=== PATIENT | female | born 1965 | race African-American/Black ===

== ENCOUNTER → 2016-05-02 | Outpatient (CLI) | payer OTHER ==
[~2016-05-02] MED LIST: ADVA500A INH; IPRA0.02 INH; LEVA3NEB7 NEB; LEVA500T PO; MULT-65 PO; NORV10TA PO; OMEGCAP2 PO; PRED5TAB PO; XOPEAER4 INH
[2016-05-02 08:32] LABS: HEMATOCRIT 39.5 % (35.0-46.0); MEAN CORPUSCULAR HEMOGLOBIN 31.6 PG (27.0-34.0); MEAN CORPUSCULAR HGB CONC 33.9 % (32.0-36.0); PLATELET COUNT 314 TH/MM3 (150-450); RED BLOOD COUNT 4.25 MIL/MM3 (4.00-5.30); RED CELL DISTRIBUTION WIDTH 12.7 % (11.6-17.2); REVIEW FLAG FINAL; WHITE BLOOD COUNT 7.1 TH/MM3 (4.0-11.0)
[2016-05-02 08:55] LABS: ANION GAP 9 MEQ/L (5-15); AST (GOT) 16 U/L (15-37); BLOOD UREA NITROGEN 16 MG/DL (7-18); CHLORIDE 104 MEQ/L (98-107); GLOMERULAR FILTRATION RATE 76 ML/MIN (>89); GLUCOSE,FASTING 235 MG/DL (74-99); POTASSIUM 3.4 MEQ/L (3.5-5.1); SODIUM (NA) 137 MEQ/L (136-145)
[2016-05-02 09:06] LABS: ALKALINE PHOSPHATASE 89 U/L (45-117); ALT (GPT) 27 U/L (10-53); HDL CHOLESTEROL 47.7 MG/DL (40.0-60.0); LDL CHOLESTEROL 175 MG/DL (0-99); TOTAL BILIRUBIN ADULT 0.8 MG/DL (0.2-1.0)
[2016-05-02 16:08] LABS: HEMOGLOBIN A1a 1.1 %; HEMOGLOBIN A1b 2.7 %; HEMOGLOBIN Ao 77.4 %; HEMOGLOBIN LA1C 2.7 %; HEMOGLOBIN P3 4.7 %
== END ==
LOC: CLAB 07:59
PROVIDERS: ATTEND Family Medicine
DX: E78.5 Hyperlipidemia, unspecified (principal); E11.65 Type 2 diabetes mellitus with hyperglycemia; I10 Essential (primary) hypertension
CPT/HCPCS: 36415; 80053; 80061; 83036; 84443; 85027

== ENCOUNTER → 2016-10-02 | Outpatient (CLI) | payer OTHER ==
[2016-10-02 08:48] LABS: ANION GAP 9 MEQ/L (5-15); BICARBONATE 24.2 MEQ/L (21.0-32.0); BLOOD UREA NITROGEN 14 MG/DL (7-18); CHLORIDE 106 MEQ/L (98-107); GLOMERULAR FILTRATION RATE 68 ML/MIN (>89); GLUCOSE,FASTING 145 MG/DL (74-99); POTASSIUM 3.9 MEQ/L (3.5-5.1); SODIUM (NA) 139 MEQ/L (136-145)
[2016-10-02 08:50] LABS: ALT (GPT) 35 U/L (10-53); AST (GOT) 39 U/L (15-37)
[2016-10-02 08:53] LABS: ALKALINE PHOSPHATASE 84 U/L (45-117); HDL CHOLESTEROL 47.4 MG/DL (40.0-60.0); LDL CHOLESTEROL 111 MG/DL (0-99); TOTAL BILIRUBIN ADULT 0.9 MG/DL (0.2-1.0)
[2016-10-02 09:06] LABS: HEMATOCRIT 39.7 % (35.0-46.0); MEAN CELL VOLUME 93.4 FL (80.0-100.0); MEAN CORPUSCULAR HEMOGLOBIN 30.4 PG (27.0-34.0); MEAN CORPUSCULAR HGB CONC 32.5 % (32.0-36.0); PLATELET COUNT 363 TH/MM3 (150-450); RED BLOOD COUNT 4.25 MIL/MM3 (4.00-5.30); REVIEW FLAG FINAL; WHITE BLOOD COUNT 5.9 TH/MM3 (4.0-11.0)
[2016-10-02 16:47] LABS: HEMOGLOBIN A1b 1.4 %; HEMOGLOBIN LA1C 2.1 %; HEMOGLOBIN P3 3.4 %
== END ==
LOC: CLAB 07:58
PROVIDERS: ATTEND Family Medicine
DX: I10 Essential (primary) hypertension (principal); J45.20 Mild intermittent asthma, uncomplicated; E78.5 Hyperlipidemia, unspecified; E11.65 Type 2 diabetes mellitus with hyperglycemia
CPT/HCPCS: 36415; 80053; 80061; 83036; 85027

== ENCOUNTER → 2017-03-12 | Outpatient (CLI) | payer OTHER ==
[2017-03-12 08:40] LABS: HEMATOCRIT 38.7 % (35.0-46.0); MEAN CELL VOLUME 95.1 FL (80.0-100.0); MEAN CORPUSCULAR HGB CONC 33.6 % (32.0-36.0); MEAN PLATELET VOLUME 7.9 FL (7.0-11.0); PLATELET COUNT 404 TH/MM3 (150-450); RED BLOOD COUNT 4.07 MIL/MM3 (4.00-5.30); RED CELL DISTRIBUTION WIDTH 12.9 % (11.6-17.2); WHITE BLOOD COUNT 6.4 TH/MM3 (4.0-11.0)
[2017-03-12 09:16] LABS: CHOLESTEROL 205 MG/DL (120-200)
[2017-03-12 09:22] LABS: ALBUMIN 3.7 GM/DL (3.4-5.0); ALT (GPT) 33 U/L (10-53); AST (GOT) 29 U/L (15-37); BICARBONATE 28.6 MEQ/L (21.0-32.0); BLOOD UREA NITROGEN 20 MG/DL (7-18); CALCIUM 8.8 MG/DL (8.5-10.1); CHLORIDE 103 MEQ/L (98-107); CREATININE 1.08 MG/DL (0.50-1.00); GLOMERULAR FILTRATION RATE 64 ML/MIN (>89); GLUCOSE,FASTING 138 MG/DL (74-99); SODIUM (NA) 137 MEQ/L (136-145)
[2017-03-12 09:27] LABS: ALKALINE PHOSPHATASE 87 U/L (45-117); CHOLESTEROL/ HDL RATIO 4.27 RATIO; LDL CHOLESTEROL 123 MG/DL (0-99); TOTAL BILIRUBIN ADULT 1.1 MG/DL (0.2-1.0); TOTAL PROTEIN 7.5 GM/DL (6.4-8.2); TRIGLYCERIDES 172 MG/DL (42-150)
== END ==
LOC: CLAB 08:17
PROVIDERS: ATTEND Family Medicine
DX: J45.20 Mild intermittent asthma, uncomplicated (principal); E78.5 Hyperlipidemia, unspecified; I10 Essential (primary) hypertension; E11.65 Type 2 diabetes mellitus with hyperglycemia
CPT/HCPCS: 36415; 80053; 80061; 84443; 85027

== ENCOUNTER 2017-05-09 13:27 | Inpatient (IN) | payer OTHER ==
[~2017-05-09] VITALS: Ht 157.5 cm; Wt 61.0 kg
[2017-05-09] VITALS (15 sets, daily range): BP systolic 98–137; BP diastolic 67–87; PULSE 104–160; RESP 18–28; TEMP 98.7–99; O2SAT 89–100
--- NOTE | 2017-05-09 13:31 | PD ---
HPI Chief Complaint: Shortness of breath Time Seen by Provider: 13:30 Travel History International Travel<30 days: No Contact w/Intl Traveler<30days: No Traveled to known affect area: No History of Present Illness HPI This 51-year-old female is complaining of shortness of breath. She is transported from Dr. Mendosa's office. She has a history of asthma. She has been on prednisone for the past week. She has been coughing and short of breath. She went to Dr. Mendosa's office today. She has been given Solu- Medrol and was given a nebulizer treatment with Atrovent. They would not give albuterol because she was tachycardic. She has not been transported. She has had tachycardia associated with her asthma attacks in the past. She has no history of heart disease. She does not have a history of SVT or atrial fibrillation that she is aware of [facility] Past Medical History Arthritis: No Asthma: Yes Autoimmune Disease: No Blood Disorders: No Anxiety: No Depression: No Heart Rhythm Problems: Yes ("tachycardia" 2006) Cancer: No Cardiovascular Problems: Yes High Cholesterol: No Chemotherapy: No Chest Pain: No Congestive Heart Failure: No COPD: No Cerebrovascular Accident: No Diabetes: No Diminished Hearing: No Endocrine: No GERD: Yes (LAST FEW MONTHS) Glaucoma: No Genitourinary: No Headaches: No Hepatitis: No Hiatal Hernia: No Hypertension: Yes Immune Disorder: No Kidney Stones: No Musculoskeletal: No Neurologic: No Psychiatric: No Reproductive: No Respiratory: Yes (2000 intubated for two days after acute asthma attack) Immunizations Current: Yes Migraines: No Myocardial Infarction: No Radiation Therapy: No Renal Failure: No Seizures: No Sickle Cell Disease: No Sleep Apnea: No Thyroid Disease: No Ulcer: No : 2 Para: 1 Miscarriage: 1 Past Surgical History Abdominal Surgery: Yes AICD: No Appendectomy: No Arteriovenous Shunt: No Cardiac Surgery: No Section: Yes (2000) Cholecystectomy: No Ear Surgery: No Endocrine Surgery: No Eye Surgery: No Genitourinary Surgery: No Gynecologic Surgery: Yes Insulin Pump: No Joint Replacement: No Oral Surgery: No Pacemaker: No Thoracic Surgery: No Other Surgery: Yes (c section 2000) Social History Alcohol Use: No Tobacco Use: No Substance Use: No Allergies-Medications (Allergen,Severity, Reaction): Coded Allergies: penicillin G (Unverified Allergy, Severe, SOB, 05/09/17) strawberry (Unverified Allergy, Severe, RASH, 05/09/17) albuterol (Unverified Adverse Reaction, Severe, TACHYCARDIA, 05/09/17) Reported Meds & Prescriptions Reported Meds & Active Scripts Active Reported Medrol Dosepak (Methylprednisolone) Unknown Strength Dspk 20 Mg PO DIRECTED Per Pharmacist direction Xopenex Hfa 15 GM Inh (Levalbuterol 15 GM Inh) Unknown Strength Aer Unknown Dose INH DIRECTED PRN Shake well before using. (1 puff = 45 mcg) Xopenex Neb (Levalbuterol HCl) Unknown Strength Neb Unknown Dose NEB Q4HR PRN Breo Ellipta Inh (Fluticasone/Vilanterol) 200-25 Mcg/Act Inh 1 Puff INH DAILY Use daily at the same time. Metformin (Metformin HCl) 500 Mg Tab 500 Mg PO BIDPC Norvasc (Amlodipine Besylate) 5 Mg Tab 5 Mg PO DAILY Review of Systems General / Constitutional: No: Fever, Chills Eyes: No: Diploplia, Blurred Vision HENT: No: Headaches Cardiovascular: Positive: Palpitations, Tachycardia, No: Chest Pain or Discomfort Respiratory: Positive: Cough, Shortness of Breath Gastrointestinal: No: Nausea, Vomiting Physical Exam Narrative GENERAL: Well-developed female. On arrival her heart rate is 160 SKIN: Focused skin assessment warm/dry. HEAD: Atraumatic. Normocephalic. EYES: Pupils equal and round. No scleral icterus. No injection or drainage. ENT: No nasal bleeding or discharge. Mucous membranes pink and moist. NECK: Trachea midline. No JVD. CARDIOVASCULAR: Rapid regular rate and rhythm. No murmur appreciated. RESPIRATORY: There is accessory muscle use. There is bilateral expiratory wheezing GASTROINTESTINAL: Abdomen soft, non-tender, nondistended. Hepatic and splenic margins not palpable. MUSCULOSKELETAL: No obvious deformities. No clubbing. No cyanosis. No edema. NEUROLOGICAL: Awake and alert. No obvious cranial nerve deficits. Motor grossly within normal limits. Normal speech. PSYCHIATRIC: Appropriate mood and affect; insight and judgment normal. Data Data Last Documented VS Vital Signs Date Time Temp Pulse Resp B/P (MAP) Pulse Ox O2 Delivery O2 Flow Rate FiO2 05/09/17 15:30 161 24 99 Venturi Mask 50 05/09/17 15:03 137/87 (104) 05/09/17 13:45 98.9 Orders Orders Electrocardiogram (05/09/17 13:35) Complete Blood Count With Diff (05/09/17 13:35) Comprehensive Metabolic Panel (05/09/17 13:35) Troponin I (05/09/17 13:35) B-Type Natriuretic Peptide (05/09/17 13:35) Prothrombin Time / Inr (Pt) (05/09/17 13:35) Act Partial Throm Time (Ptt) (05/09/17 13:35) Urinalysis - C+S If Indicated (05/09/17 13:35) Magnesium (Mg) (05/09/17 13:35) Thyroid Stimulating Hormone (05/09/17 13:35) Chest, Single Ap (05/09/17 13:35) Sodium Chlorid 0.9% 500 Ml Inj (Ns 500 M (05/09/17 13:45) Arterial Blood Gas (Abg) (05/09/17 14:26) Furosemide Inj (Lasix Inj) (05/09/17 15:00) Levalbuterol Neb (Xopenex Neb) (05/09/17 15:15) Insulin Human Regular Inj (Novolin R Inj (05/09/17 15:15) Adenosine Inj (Adenocard Inj) (05/09/17 15:30) Admit Order (Ed Use Only) (05/09/17 15:36) Labs Laboratory Tests Test 05/09/17 13:50 05/09/17 14:15 05/09/17 14:53 Prothrombin Time 10.5 SEC Prothromb Time International Ratio 1.0 RATIO Activated Partial Thromboplast Time 18.4 SEC Blood Urea Nitrogen 23 MG/DL Creatinine 1.40 MG/DL Random Glucose 409 MG/DL Total Protein 8.1 GM/DL Albumin 3.6 GM/DL Calcium Level 8.5 MG/DL Magnesium Level 2.4 MG/DL Alkaline Phosphatase 96 U/L Aspartate Amino Transf (AST/SGOT) 13 U/L Alanine Aminotransferase (ALT/SGPT) 31 U/L Total Bilirubin 0.6 MG/DL Sodium Level 135 MEQ/L Potassium Level 4.1 MEQ/L Chloride Level 102 MEQ/L Carbon Dioxide Level 22.1 MEQ/L Anion Gap 11 MEQ/L Estimat Glomerular Filtration Rate 48 ML/MIN Troponin I 0.28 NG/ML B-Type Natriuretic Peptide 1218 PG/ML Thyroid Stimulating Hormone 3rd Gen 1.510 uIU/ML White Blood Count 11.4 TH/MM3 Red Blood Count 4.64 MIL/MM3 Hemoglobin 14.5 GM/DL Hematocrit 43.7 % Mean Corpuscular Volume 94.2 FL Mean Corpuscular Hemoglobin 31.2 PG Mean Corpuscular Hemoglobin Concent 33.1 % Red Cell Distribution Width 12.5 % Platelet Count 422 TH/MM3 Mean Platelet Volume 8.6 FL Neutrophils (%) (Auto) 89.6 % Lymphocytes (%) (Auto) 3.9 % Monocytes (%) (Auto) 2.8 % Eosinophils (%) (Auto) 0.1 % Basophils (%) (Auto) 3.6 % Neutrophils # (Auto) 10.3 TH/MM3 Lymphocytes # (Auto) 0.4 TH/MM3 Monocytes # (Auto) 0.3 TH/MM3 Eosinophils # (Auto) 0.0 TH/MM3 Basophils # (Auto) 0.4 TH/MM3 CBC Comment DIFF FINAL Differential Comment Blood Gas Puncture Site LT RADIAL Blood Gas Patient Temperature 98.6 Blood Gas HCO3 21 mmol/L Blood Gas Base Excess -3.6 mmol/L Blood Gas Oxygen Saturation 95 % Arterial Blood pH 7.39 Arterial Blood Partial Pressure CO2 35 mmHG Arterial Blood Partial Pressure O2 86 mmHG Arterial Blood Oxygen Content 18.4 Vol % Arterial Blood Carboxyhemoglobin 1.2 % Arterial Blood Methemoglobin 1.1 % Blood Gas Hemoglobin 13.8 G/DL Oxygen Delivery Device Venti Mask Blood Gas Inspired Oxygen 50 % [facility] Medical Decision Making Medical Screen Exam Complete: Yes Emergency Medical Condition: Yes Medical Record Reviewed: Yes Differential Diagnosis Differential includes asthma exacerbation, cardiac dysrhythmia Narrative Course Patient does not use albuterol listed as an allergy because it causes tachycardia. She says she has had trouble with tachycardia in the past associated with her exacerbations. She was given Solu-Medrol prior to arrival. We have given Xopenex 3. Repeat exam shows some improvement in her wheezing. She has persistent heart rate of 160. With the Valsalva maneuver this came down gradually to 147 and then went back up. EKG shows a's tachycardia narrow complex there appear to be peaked P waves. Her BNP has come back elevated at 1218 and her troponin is 0.28. EKG shows a narrow complex tachycardia. She was given adenosine which caused him temporarily swelling and has subsequently been given Cardizem. She will be admitted to the intensive care unit Diagnosis Primary Impression: Asthma exacerbation Additional Impression: CHF (congestive heart failure) Derek Hickey MD May 09, 2017 13:31
[2017-05-09] MEDS ORDERED: SODIUM CHLORID 0.9% 500 ML INJ 500 ML IV ONE (13:45)
[2017-05-09] MEDS: RESP: LEVALBUTEROL HYDROCHLORIDE 1.25 MG/3 ML NEB (SCH) NEB ×3 (14:05→14:30)
[2017-05-09 14:12] LABS: CHLORIDE 102 MEQ/L (98-107); SODIUM (NA) 135 MEQ/L (136-145)
[2017-05-09 14:16] LABS: ALBUMIN 3.6 GM/DL (3.4-5.0); BICARBONATE 22.1 MEQ/L (21.0-32.0); CALCIUM 8.5 MG/DL (8.5-10.1)
[2017-05-09 14:17] LABS: PROTHROMBIN TIME - PATIENT 10.5 SEC (9.8-11.6)
--- NOTE | 2017-05-09 14:24 | RADRPT ---
EXAM DATE/TIME: 05/09/2017 13:59 [facility] COMPARISON: CHEST SINGLE AP, July 22, 2012, 9:52. INDICATIONS : Short of breath MEDICAL HISTORY : Asthma SURGICAL HISTORY : None. ENCOUNTER: Initial ACUITY: 2 days PAIN SCORE: 0/10 LOCATION: Bilateral chest FINDINGS: A single view of the chest demonstrates the lungs to be symmetrically aerated without evidence of mas s, infiltrate or effusion. Mild cardiomegaly without pulmonary vascular engorgement. Osseous structu res are intact. CONCLUSION: Cardiomegaly without pulmonary vascular engorgement. Bright Welch Jr., MD on May 09, 2017 at 14:22 Board Certified Radiologist. This report was verified electronically.
[2017-05-09 14:29] LABS: AUTOMATED NEUTROPHIL # 10.3 TH/MM3 (1.8-7.7); BASOPHIL # 0.4 TH/MM3 (0-0.2); BASOPHIL % 3.6 % (0.0-2.0); EOSINOPHIL % 0.1 % (0.0-4.0); HEMATOCRIT 43.7 % (35.0-46.0); HEMOGLOBIN 14.5 GM/DL (11.6-15.3); LYMPH % 3.9 % (9.0-44.0); LYMPHOCYTE # 0.4 TH/MM3 (1.0-4.8); MEAN CELL VOLUME 94.2 FL (80.0-100.0); MEAN CORPUSCULAR HEMOGLOBIN 31.2 PG (27.0-34.0); MEAN CORPUSCULAR HGB CONC 33.1 % (32.0-36.0); MEAN PLATELET VOLUME 8.6 FL (7.0-11.0); MONO % 2.8 % (0.0-8.0); MONOCYTE # 0.3 TH/MM3 (0-0.9); NEUT % 89.6 % (16.0-70.0); PLATELET COUNT 422 TH/MM3 (150-450); RED BLOOD COUNT 4.64 MIL/MM3 (4.00-5.30); RED CELL DISTRIBUTION WIDTH 12.5 % (11.6-17.2); WHITE BLOOD COUNT 11.4 TH/MM3 (4.0-11.0)
[2017-05-09] MEDS: ADENOSINE IV SOLN 3 MG/ML 2 ML VIAL IV PUSH ONE ×2 (14:40→16:40)
[2017-05-09] MEDS ORDERED: FUROSEMIDE 20 MG/2 ML VIAL IV PUSH ONE (15:00)
[2017-05-09 15:03] LABS: ALKALINE PHOSPHATASE 96 U/L (45-117); ALT (GPT) 31 U/L (10-53); AST (GOT) 13 U/L (15-37); BLOOD UREA NITROGEN 23 MG/DL (7-18); GLOMERULAR FILTRATION RATE 48 ML/MIN (>89); GLUCOSE,RANDOM 409 MG/DL (74-106); MAGNESIUM 2.4 MG/DL (1.5-2.5); TOTAL BILIRUBIN ADULT 0.6 MG/DL (0.2-1.0); TOTAL PROTEIN 8.1 GM/DL (6.4-8.2); TROPONIN I 0.28 NG/ML (0.02-0.05)
[2017-05-09] MEDS ORDERED: INSULIN HUMAN REGULAR 1,000 UNITS/10 ML VIAL SQ ONE (15:15)
[2017-05-09] MEDS ORDERED: METF500T PO (15:18)
[2017-05-09] MEDS ORDERED: LEVA0.3110 NEB (15:18)
[2017-05-09] MEDS ORDERED: AMLO5 PO (15:18)
[2017-05-09] MEDS ORDERED: FLUT1INH7 INH (15:18)
[2017-05-09] MEDS ORDERED: XOPEAER4 INH (15:18)
[2017-05-09] MEDS ORDERED: MEDR4PAK PO (15:18)
[2017-05-09] MEDS ORDERED: ADENOSINE IV SOLN 3 MG/ML 2 ML VIAL IV PUSH ONE (15:30)
[2017-05-09 16:00] LABS: BILIRUBIN, URINE NEG (NEG); BLOOD, URINE TRACE (NEG); GLUCOSE,URINE 1000 OR GREATER mg/dL (NEG); KETONE, URINE NEG (NEG); NITRITE,URINE NEG (NEG); PH, URINE 5.5 (5.0-8.5); URINE COLOR YELLOW (YELLW/STRAW); URINE LEUKOCYTE ESTERASE NEG (NEG)
[2017-05-09 16:12] LABS: MUCUS URINE MANY /lpf (OCC)
[2017-05-09 16:13] LABS: HYALINE CAST, URINE 15-19 /lpf (RARE); RBC, URINE 0-3 /hpf (0-3); SQUAMOUS EPITHELIAL CELL URINE 0-5 /hpf (0-5); WBC, URINE 0-2 /hpf (0-5)
[2017-05-09] MEDS ORDERED: DILTIAZEM HCL 25 MG/5 ML VIAL IV ONE (16:15)
[2017-05-09] MEDS ORDERED: METOPROLOL TARTRATE 5 MG/5 ML VIAL IV PUSH ONE (17:00)
[2017-05-09] MEDS ORDERED: CHLORHEXIDINE GLUCONATE 2 % 1 PACK (2 CLOTHS) TOP PRN (17:15)
[2017-05-09] MEDS ORDERED: MAGNESIUM SULFATE INJ 2 GM in SODIUM CHLORIDE 0.9% INJ 96 ML IV PRN (17:15)
[2017-05-09] MEDS ORDERED: RESP: ALBUTEROL 2.5 MG/IPRATROPIUM 0.5 MG NEB (PRN) INH ×2 (17:15)
[2017-05-09] MEDS ORDERED: POTASSIUM PHOSPHATE MONOBASIC 500 MG TAB PO/TUBE PRN (17:15)
[2017-05-09] MEDS ORDERED: ONDANSETRON HCL 4 MG/2 ML VIAL IV PUSH PRN (17:15)
[2017-05-09] MEDS ORDERED: MAGNESIUM SULFATE INJ 4 GM in SODIUM CHLORIDE 0.9% INJ 92 ML IV PRN (17:15)
[2017-05-09] MEDS ORDERED: POTASSIUM CHLOR 20 MEQ PREMIX 100 ML IV PRN ×2 (17:15)
[2017-05-09] MEDS ORDERED: DEXTROSE 50% IN WATER 50 ML VIAL(D50) IV PUSH PRN (17:15)
[2017-05-09] MEDS ORDERED: FUROSEMIDE 40 MG/4 ML VIAL IV PUSH ONE (17:15)
[2017-05-09] MEDS ORDERED: POTASSIUM CHLORIDE 25 MEQ EFFERVESCENT TAB PO PRN (17:15)
[2017-05-09] MEDS ORDERED: POTASSIUM PHOSPHATE INJ 30 MMOL in SODIUM CHLOR 0.9% 250 ML INJ 250 ML IV PRN (17:15)
[2017-05-09] MEDS ORDERED: SODIUM PHOSPHATE INJ 30 MMOL in SODIUM CHLOR 0.9% 250 ML INJ 240 ML IV PRN (17:15)
[2017-05-09] MEDS ORDERED: MAGNESIUM OXIDE 400 MG TAB PO PRN (17:15)
[2017-05-09] MEDS ORDERED: POTASSIUM PHOSPHATE MONOBASIC 500 MG TAB PO PRN (17:15)
[2017-05-09] MEDS ORDERED: MISCELLANEOUS NURSING INFORMATION XX SCH (17:15)
[2017-05-09] MEDS ORDERED: POTASSIUM CHLOR 40 MEQ PREMIX 100 ML IV PRN ×2 (17:15)
--- NOTE | 2017-05-09 17:25 | HHI.HP ---
[facility] Service Critical Care Medicine Primary Care Physician Olga Reynolds MD Admission Diagnosis ASTHMA, TACHYCARDIA Diagnosis: Chief Complaint: shortness of breath Travel History International Travel<30 Days: No Contact w/Intl Traveler <30 Da: No Traveled to Known Affected Are: No History of Present Illness This 51-year-old female with a past medical history of poorly controlled asthma who presents with a few days of acute worsening shortness of breath. She states that approximately 2 weeks ago, she started noticing that it was more difficult to walk from the parking garage to her desk (approximately 300 yds). She also has noticed over the same time period that she needs additional pillows to sleep at night and is having worsening dyspnea. She has poorly controlled Asthma, and usually uses her Xopenex inhaler once or twice at night, and at least once during the daytime. She has been intubated for asthma in the past, approximately 17 years ago. She denies any chest pain. She is a nonsmoker and has no family history of coronary artery disease. Her father did of CHF (unknown type) in his 70s. In the emergency department, she was hypoxic requiring a 50% ventimask. She has a Cr 1.3 (reportedly normal baseline), She has an elevated BNP at 1300 and a CXR with evidence of cardiomegaly. I performed bedside critical care ultrasonography which demonstrated a severely depressed LV systolic function globally, decompressed RV with preserved RV function, collapsable IVC, no pericardial effusion. ROS is positive for tachycardia (has had palpitations x 48h and every hospital admission in last 2 years has HR > 140). denies fever, chills or recent colds/ flulike symptoms in last 6 months. denies nausea, vomiting, diarrhea, constipation, abdominal pain. denies lower extremity swelling. denies fatigue. denies agitation, hot/cold intolerance. Remainder of ROS negative. Review of Systems Constitutional: DENIES: Diaphoretic episodes, Fatigue, Fever, Weight gain, Weight loss, Chills, Dizziness, Change in appetite, Night Sweats Endocrine: DENIES: Abnorml menstrual pattern, Heat/cold intolerance, Polydipsia , Polyuria, Polyphagia Eyes: DENIES: Blurred vision, Diplopia, Eye inflammation, Eye pain, Vision loss , Photosensitivity, Double Vision Ears, nose, mouth, throat: DENIES: Tinnitus, Hearing loss, Vertigo, Nasal discharge, Oral lesions, Throat pain, Hoarseness, Ear Pain, Running Nose, Epistaxis, Sinus Pain, Toothache, Odynophagia Respiratory: COMPLAINS OF: Wheezing, Shortness of breath, DENIES: Apneas, Cough , Snoring, Hemoptysis, Sputum production Cardiovascular: COMPLAINS OF: Palpitations, Dyspnea on Exertion, Orthopnea, DENIES: Chest pain, Syncope, PND, Lower Extremity Edema, Claudication Gastrointestinal: DENIES: Abdominal pain, Black stools, Bloody stools, Constipation, Diarrhea, Nausea, Vomiting, Difficulty Swallowing, Anorexia Genitourinary: DENIES: Abnormal vaginal bleeding, Dysmenorrhea, Dyspareunia, Sexual dysfunction, Urinary frequency, Urinary incontinence, Urgency, Hematuria , Dysuria, Nocturia, Vaginal discharge Musculoskeletal: DENIES: Joint pain, Muscle aches, Stiffness, Joint Swelling, Back pain, Neck pain Integumentary: DENIES: Abnormal pigmentation, Pruritus, Rash, Nail changes, Breast masses, Breast skin changes, Nipple discharge Hematologic/lymphatic: DENIES: Bruising, Lymphadenopathy Immunologic/allergic: DENIES: Eczema, Urticaria Neurologic: DENIES: Abnormal gait, Headache, Localized weakness, Paresthesias, Seizures, Speech Problems, Tremor, Poor Balance Psychiatric: DENIES: Anxiety, Confusion, Mood changes, Depression, Hallucinations, Agitation, Suicidal Ideation, Homicidal Ideation, Delusions Past Family Social History Allergies: Coded Allergies: penicillin G (Unverified Allergy, Severe, SOB, 05/09/17) strawberry (Unverified Allergy, Severe, RASH, 05/09/17) albuterol (Unverified Adverse Reaction, Severe, TACHYCARDIA, 05/09/17) Past Medical History Asthma Diabetes Hypertension Past Surgical History none Reported Medications Medrol Dosepak (Methylprednisolone) Unknown Strength Dspk 20 Mg PO DIRECTED Per Pharmacist direction Xopenex Hfa 15 GM Inh (Levalbuterol 15 GM Inh) Unknown Strength Aer Unknown Dose INH DIRECTED PRN Shake well before using. (1 puff = 45 mcg) Xopenex Neb (Levalbuterol HCl) Unknown Strength Neb Unknown Dose NEB Q4HR PRN Breo Ellipta Inh (Fluticasone/Vilanterol) 200-25 Mcg/Act Inh 1 Puff INH DAILY Use daily at the same time. Metformin (Metformin HCl) 500 Mg Tab 500 Mg PO BIDPC Norvasc (Amlodipine Besylate) 5 Mg Tab 5 Mg PO DAILY Active Ordered Medications See MAR Family History father of CHF in 70s. Social History never smoked. denies etoh denies any other drugs or over the counter supplementation. Physical Exam Vital Signs Vital Signs Date Time Temp Pulse Resp B/P (MAP) Pulse Ox O2 Delivery O2 Flow Rate FiO2 05/09/17 15:55 157 22 133/83 (100) 98 Venturi Mask 50 05/09/17 15:30 161 24 99 Venturi Mask 50 05/09/17 15:03 159 137/87 (104) 94 Venturi Mask 50 05/09/17 15:00 160 24 131/85 (100) 99 Venturi Mask 50 05/09/17 14:30 152 28 128/83 (98) 100 Venturi Mask 50 05/09/17 13:50 155 28 98 Venturi Mask 50 05/09/17 13:45 98.9 152 28 135/87 (103) 89 Physical Exam GENERAL: Middle-aged female, sitting up in bed, acute respiratory distress HEENT: Normocephalic. Atraumatic. Pupils equal, round, reactive, conjugate. Mucous membranes are moist NECK: Trachea is midline. Positive JVD up to the mid neck CHEST: Labored. Ventimask in place. Bilateral coarse rales which are greater in the bases. Scant wheezes CARDIOVASCULAR: Tachycardic rate in the 170s. Appears regular rhythm. EKG appears to be a narrow complex tachycardia with it appears to be P waves adjacent every QRS complex. While I was at bedside the patient was given 12 mg adenosine and the result was recorded on a 12-lead rhythm strip. To my read, the rhythm strip demonstrates a slowing of the heart rate to the 50s-60s, again there evidence of P waves adjacent QRS complexes and the complexes remain narrow. The rhythm returns to a tachycardia in the 140s. The remainder of the cardiac exam is unremarkable with the exception of the laterally displaced PMI ABDOMEN: Soft, nontender, nondistended. No guarding. MUSCULOSKELETAL: Pulses 2+. No peripheral edema. NEUROLOGICAL: RASS 0. GCS 15. Follows commands. Laboratory Laboratory Tests Test 05/09/17 13:50 05/09/17 14:15 05/09/17 14:53 05/09/17 15:40 Prothrombin Time 10.5 Prothromb Time International Ratio 1.0 Activated Partial Thromboplast Time 18.4 Blood Urea Nitrogen 23 Creatinine 1.40 Random Glucose 409 Total Protein 8.1 Albumin 3.6 Calcium Level 8.5 Magnesium Level 2.4 Alkaline Phosphatase 96 Aspartate Amino Transf (AST/SGOT) 13 Alanine Aminotransferase (ALT/SGPT) 31 Total Bilirubin 0.6 Sodium Level 135 Potassium Level 4.1 Chloride Level 102 Carbon Dioxide Level 22.1 Anion Gap 11 Estimat Glomerular Filtration Rate 48 Troponin I 0.28 B-Type Natriuretic Peptide 1218 Thyroid Stimulating Hormone 3rd Gen 1.510 White Blood Count 11.4 Red Blood Count 4.64 Hemoglobin 14.5 Hematocrit 43.7 Mean Corpuscular Volume 94.2 Mean Corpuscular Hemoglobin 31.2 Mean Corpuscular Hemoglobin Concent 33.1 Red Cell Distribution Width 12.5 Platelet Count 422 Mean Platelet Volume 8.6 Neutrophils (%) (Auto) 89.6 Lymphocytes (%) (Auto) 3.9 Monocytes (%) (Auto) 2.8 Eosinophils (%) (Auto) 0.1 Basophils (%) (Auto) 3.6 Neutrophils # (Auto) 10.3 Lymphocytes # (Auto) 0.4 Monocytes # (Auto) 0.3 Eosinophils # (Auto) 0.0 Basophils # (Auto) 0.4 CBC Comment DIFF FINAL Differential Comment Blood Gas Puncture Site LT RADIAL Blood Gas Patient Temperature 98.6 Blood Gas HCO3 21 Blood Gas Base Excess -3.6 Blood Gas Oxygen Saturation 95 Arterial Blood pH 7.39 Arterial Blood Partial Pressure CO2 35 Arterial Blood Partial Pressure O2 86 Arterial Blood Oxygen Content 18.4 Arterial Blood Carboxyhemoglobin 1.2 Arterial Blood Methemoglobin 1.1 Blood Gas Hemoglobin 13.8 Oxygen Delivery Device Venti Mask Blood Gas Inspired Oxygen 50 Urine Color YELLOW Urine Turbidity CLEAR Urine pH 5.5 Urine Specific [place] 1.020 Urine Protein TRACE Urine Glucose (UA) 1000 OR GREATER Urine Ketones NEG Urine Occult Blood TRACE Urine Nitrite NEG Urine Bilirubin NEG Urine Urobilinogen 0.2 Urine Leukocyte Esterase NEG Urine RBC 0-3 Urine WBC 0-2 Urine Squamous Epithelial Cells 0-5 Urine Hyaline Casts 15-19 Urine Mucus MANY Microscopic Urinalysis Comment CULT NOT INDICATED Result Diagram: 05/09/17 1415 05/09/17 1350 Imaging Last Impressions Chest X-Ray 05/09/17 1335 Signed Impressions: Service Date/Time: Tuesday, May 09, 2017 13:59 - CONCLUSION: Cardiomegaly without pulmonary vascular engorgement. MD Odell Belol Jr. VTE Risk Assessment Caprini VTE Risk Assessment: Mod/High Risk (score >= 2) Caprini Risk Assessment Model Point Value = 1 Point Value = 2 Point Value = 3 Point Value = 5 Age 41-60 Minor surgery BMI > 25 kg/m2 Swollen legs Varicose veins or History of unexplained or recurrent spontaneous Oral contraceptives or hormone replacement Sepsis (< 1 month) Serious lung disease, including pneumonia (< 1 month) Abnormal pulmonary function Acute myocardial infarction Congestive heart failure (< 1 month) History of inflammatory bowel disease Medical patient at bed rest Age 61-74 Arthroscopic surgery Major open surgery (> 45 min) Laparoscopic surgery (> 45 min) Malignancy Confined to bed (> 72 hours) Immobilizing plaster cast Central venous access Age >= 75 History of VTE Family history of VTE Factor V Leiden Prothrombin [id number] Lupus anticoagulant Anticardiolipin antibodies Elevated serum homocysteine Heparin-induced thrombocytopenia Other congenital or acquired thrombophilia Stroke (< 1 month) Elective arthroplasty Hip, pelvis, or leg fracture Acute spinal cord injury (< 1 month) Prophylaxis Regimen Total Risk Factor Score Risk Level Prophylaxis Regimen 0-1 Low Early ambulation 2 Moderate Order ONE of the following: *Sequential Compression Device (SCD) *Heparin 5000 units SQ BID 3-4 Higher Order ONE of the following medications: *Heparin 5000 units SQ TID *Enoxaparin/Lovenox 40 mg SQ daily (WT < 150 kg, CrCl > 30 mL/min) *Enoxaparin/Lovenox 30 mg SQ daily (WT < 150 kg, CrCl > 10-29 mL/min) *Enoxaparin/Lovenox 30 mg SQ BID (WT < 150 kg, CrCl > 30 mL/min) AND/OR *Sequential Compression Device (SCD) 5 or more Highest Order ONE of the following medications: *Heparin 5000 units SQ TID (Preferred with Epidurals) *Enoxaparin/Lovenox 40 mg SQ daily (WT < 150 kg, CrCl > 30 mL/min) *Enoxaparin/Lovenox 30 mg SQ daily (WT < 150 kg, CrCl > 10-29 mL/min) *Enoxaparin/Lovenox 30 mg SQ BID (WT < 150 kg, CrCl > 30 mL/min) AND *Sequential Compression Device (SCD) Assessment and Plan Assessment and Plan Assessment: This is a 51-year-old female with history of poorly controlled asthma who presents with worsening shortness of breath, dyspnea on exertion, orthopnea and is in new onset systolic congestive heart failure exacerbation secondary to a new diagnosis of cardiomyopathy with an unknown etiology. I spoke to Dr. Guido. This appears to be a global and likely nonischemic cardiomyopathy. The most likely diagnosis at this point would be tachycardia mediated cardiomyopathy secondary to a narrow complex tachycardia. We will attempt to slow her heart rate down with beta blockade. She will be n.p.o. at midnight for left and right heart catheterization considerations by Dr. Guido. Certainly given her respiratory distress and new diagnosis of cardiomyopathy, she is at high risk for decompensation and further morbidity. We will admit her to the intensive care unit and monitor her closely. Active problems: Acute hypoxemia Acute systolic CHF exacerbation New onset cardiomyopathy-unknown etiology Type II NSTEMI secondary to demand ischemia/elevated troponin Acute intravascular volume overload Plan: Admit to ICU Telemetry Lasix 40 mg IV 1 Lopressor 5 mg IV 1 Lopressor 50 mg p.o. every 6 hours scheduled Consult cardiology: Dr. Guido N.p.o. at midnight for possible heart catheterizations Will send HIV, TSH, free T4, urine metanephrines, JUVENTINO, urine drug screen, carnitine, lipid panel, A1c, thiamine Serial cardiac enzymes Wean oxygen for a goal SPO2 greater than 90% ACS is highly unlikely given no symptoms and no risk factors for acute coronary syndrome. Will not anticoagulate at this time. SCDs Subcu heparin Pepcid Admit to ICU Judd Worrell MD May 09, 2017 17:25
[2017-05-09] MEDS: METOPROLOL TARTRATE 50 MG TAB PO SCH (17:29)
[2017-05-09] MEDS ORDERED: HEPARIN SODIUM - SQ 10,000 UNITS/ML VIAL SQ SCH (18:00)
[2017-05-09] MEDS: INSULIN NovoLIN REGULAR SUPPLEMENTAL SCALE SQ SCH (18:26)
[2017-05-09 18:57] LABS: PHOSPHORUS 4.6 MG/DL (2.5-4.9)
[2017-05-09] MEDS: FAMOTIDINE 20 MG TAB PO SCH (20:21)
[2017-05-09] MEDS: RESP: LEVALBUTEROL HYDROCHLORIDE 1.25 MG/3 ML NEB (PRN) NEB (21:41)
[2017-05-09] MEDS ORDERED: RESP: ALBUTEROL 2.5 MG/IPRATROPIUM 0.5 MG NEB (SCH) INH (22:00)
[2017-05-09 22:51] LABS: TROPONIN I 21.7 NG/ML (0.02-0.05)
[2017-05-09 23:47] LABS: IRON (FE) 31 MCG/DL (50-170); TOTAL IRON BINDING CAPACITY 388 MCG/DL (250-450)
[2017-05-10] VITALS (22 sets, daily range): BP systolic 99–138; BP diastolic 46–75; PULSE 100–115; RESP 16–24; TEMP 98.3–99.9; O2SAT 93–99
[2017-05-10] MEDS ORDERED: HEPARIN SODIUM - IV 10,000 UNITS/10 ML VIAL IV PUSH ONE
[2017-05-10] MEDS: HEPARIN-D5W 25,000 U/250 ML 250 ML IV PRN ×2 (00:56→16:11)
[2017-05-10] MEDS: RESP: LEVALBUTEROL HYDROCHLORIDE 1.25 MG/3 ML NEB (PRN) NEB ×5 (01:41→13:46)
[2017-05-10 02:39] LABS: CHOLESTEROL/ HDL RATIO 4.28 RATIO; HDL CHOLESTEROL 51.4 MG/DL (40.0-60.0)
[2017-05-10] MEDS: CHLORHEXIDINE GLUCONATE 2 % 1 PACK (2 CLOTHS) TOP SCH (04:00)
[2017-05-10 05:21] LABS: BICARBONATE 24.4 MEQ/L (21.0-32.0); CALCIUM 9.1 MG/DL (8.5-10.1); CREATININE 1.17 MG/DL (0.50-1.00)
[2017-05-10] MEDS: INSULIN NovoLIN REGULAR SUPPLEMENTAL SCALE SQ SCH ×4 (05:53→18:56)
[2017-05-10] MEDS ORDERED: HEPARIN SODIUM - IV 10,000 UNITS/10 ML VIAL IV PUSH PRN ×2 (06:00)
[2017-05-10 06:17] LABS: HEMATOCRIT 44.9 % (35.0-46.0); HEMOGLOBIN 14.9 GM/DL (11.6-15.3); MEAN CELL VOLUME 94.7 FL (80.0-100.0); MEAN CORPUSCULAR HEMOGLOBIN 31.4 PG (27.0-34.0); MEAN CORPUSCULAR HGB CONC 33.2 % (32.0-36.0); MEAN PLATELET VOLUME 9.7 FL (7.0-11.0); PLATELET COUNT 345 TH/MM3 (150-450); RED BLOOD COUNT 4.75 MIL/MM3 (4.00-5.30); RED CELL DISTRIBUTION WIDTH 12.6 % (11.6-17.2)
[2017-05-10] MEDS ORDERED: PILL SPLITTER OTHER PRN (07:15)
[2017-05-10] MEDS: FAMOTIDINE 20 MG TAB PO SCH ×2 (11:00→21:00)
[2017-05-10] MEDS: methylPREDNISolone SOD SUCC 125 MG/2 ML VIAL IV PUSH SCH (11:00)
--- NOTE | 2017-05-10 11:03 | HHI.CCPN ---
Subjective Remarks/Hospital Course Hospital Course: This 51-year-old female with a past medical history of poorly controlled asthma who presents with a few days of acute worsening shortness of breath. She states that approximately 2 weeks ago, she started noticing that it was more difficult to walk from the parking garage to her desk (approximately 300 yds). She also has noticed over the same time period that she needs additional pillows to sleep at night and is having worsening dyspnea. She has poorly controlled Asthma, and usually uses her Xopenex inhaler once or twice at night, and at least once during the daytime. She has been intubated for asthma in the past, approximately 17 years ago. She denies any chest pain. She is a nonsmoker and has no family history of coronary artery disease. Her father did of CHF (unknown type) in his 70s. In the emergency department, she was hypoxic requiring a 50% ventimask. She has a Cr 1.3 (reportedly normal baseline), She has an elevated BNP at 1300 and a CXR with evidence of cardiomegaly. I performed bedside critical care ultrasonography which demonstrated a severely depressed LV systolic function globally, decompressed RV with preserved RV function, collapsable IVC, no pericardial effusion. ROS is positive for tachycardia (has had palpitations x 48h and every hospital admission in last 2 years has HR > 140). denies fever, chills or recent colds/ flulike symptoms in last 6 months. denies nausea, vomiting, diarrhea, constipation, abdominal pain. denies lower extremity swelling. denies fatigue. denies agitation, hot/cold intolerance. Remainder of ROS negative. Subjective: 05/10: severe dyspnea remains. trop overnight le significantly, most recently 27 and uptrending. started on heparin drip for rapidly rising troponins. NPO for LHC/RHC this AM. started steroids for presumed co-asthma exacerbation, though dyspnea appears cardiac in origin. ROS unchanged from yesterday. no new symptoms. no chest pain. Objective Vital Signs Date Time Temp Pulse Resp B/P (MAP) Pulse Ox O2 Delivery O2 Flow Rate FiO2 05/10/17 07:40 96 Nasal Cannula 4.00 05/10/17 07:00 98.3 106 18 105/68 (80) 05/09/17 18:30 50 Intake and Output 05/10/17 05/10/17 05/11/17 08:00 16:00 00:00 Intake Total 520 ml Output Total 300 ml Balance 220 ml Result Diagram: 05/10/17 0341 05/10/17 0341 Other Results Laboratory Tests Test 05/09/17 14:53 Blood Gas Puncture Site LT RADIAL Blood Gas Patient Temperature 98.6 Blood Gas HCO3 21 mmol/L (22-26) Blood Gas Base Excess -3.6 mmol/L (-2-2) Blood Gas Oxygen Saturation 95 % (90-100) Arterial Blood pH 7.39 (7.380-7.420) Arterial Blood Partial Pressure CO2 35 mmHG (38-42) Arterial Blood Partial Pressure O2 86 mmHG (61-120) Arterial Blood Oxygen Content 18.4 Vol % (12.0-20.0) Arterial Blood Carboxyhemoglobin 1.2 % (0-4) Arterial Blood Methemoglobin 1.1 % (0-2) Blood Gas Hemoglobin 13.8 G/DL (12.0-16.0) Oxygen Delivery Device Venti Mask Blood Gas Inspired Oxygen 50 % Imaging Last Impressions Chest X-Ray 05/09/17 7115 Signed Impressions: Service Date/Time: Tuesday, May 09, 2017 13:59 - CONCLUSION: Cardiomegaly without pulmonary vascular engorgement. Bright Welch Jr., MD Objective Remarks GENERAL: Middle-aged female, sitting up in bed, acute respiratory distress HEENT: Normocephalic. Atraumatic. Pupils equal, round, reactive, conjugate. Mucous membranes are moist NECK: Trachea is midline. no JVD today. CHEST: Labored. ncn o2. scant wheezes CARDIOVASCULAR: Tachycardic rate in the 110s. Appears regular rhythm. ABDOMEN: Soft, nontender, nondistended. No guarding. MUSCULOSKELETAL: Pulses 2+. No peripheral edema. NEUROLOGICAL: RASS 0. GCS 15. Follows commands. A/P Assessment and Plan Assessment: This is a 51-year-old female with history of poorly controlled asthma who presents with worsening shortness of breath, dyspnea on exertion, orthopnea and is in new onset systolic congestive heart failure exacerbation secondary to a new diagnosis of cardiomyopathy with an unknown etiology. Plan for LHC. continue anticoagulation until after LHC/RHC. Increase beta blockade. will likely need electrophysiology consult. appreciate cardiology involvement. stable for transfer out of ICU to step-down unit, but still highly complex with new-onset cardiomyopathy, rising troponins, ongoing severe dyspnea. Active problems: Acute hypoxemia Acute systolic CHF exacerbation New onset cardiomyopathy-unknown etiology NSTEMI with rising troponins Acute intravascular volume overload Plan: Telemetry increase Lopressor to 75 mg p.o. every 6 hours scheduled Consult cardiology: Dr. Guido C/RHC today. start statin wean o2 for goal spo2 > 90% continue to trend trop. heparin drip. HIV negative. TSH/Free T4 wnl urine metanephrines: collecting today. JUVENTINO: pending Coxsackie panel: pending. UDS: pending Carnitine: pending Lipid panel: LDL 137/HDL 51. A1c: pending thiamine: pending. SCDs heparin drip Judd La MD May 10, 2017 11:03
[2017-05-10] MEDS ORDERED: HEPARIN-NS/PF FLUSH BAG 2,000 ML IV FLUSH ONE ×2 (11:26→21:13)
[2017-05-10] MEDS ORDERED: VERAPAMIL HCL 5 MG/2 ML VIAL ONE (11:26)
[2017-05-10] MEDS ORDERED: HEPARIN SODIUM - IV 10,000 UNITS/10 ML VIAL ONE (11:27)
[2017-05-10] MEDS ORDERED: NITROGLYCERIN INJ 5 ML ONE (11:27)
[2017-05-10] MEDS: ATORVASTATIN 40 MG TAB PO SCH (12:00)
[2017-05-10] MEDS: METOPROLOL TARTRATE 50 MG TAB PO SCH ×3 (12:00→18:00)
[2017-05-10] MEDS ORDERED: FUROSEMIDE 40 MG/4 ML VIAL ONE (12:51)
--- NOTE | 2017-05-10 13:22 | CATHPROC ---
[facility] HIS Report Study Information Study Number Admission Scheduled Start Study Start [id number] May 09 2017 3:37PM 05/09/2017 May 10 2017 11:04AM [facility] [facility] Cardiac Catheterization Admit Source Facility Department Other [facility] - Traffic Observer Physician and Clinical Staff Initial Wai Robbins Office Machine Repair Shop Supervisor Viji Gómez RN Office Machine Repair Shop Supervisor John Hall RN Other cathlab, cathlab Recorder Amy Sidhu,SYSTEMS SUPPORT ENGINEER TECH2 Recorder Marisela Broussard ,RT(R) ScrArgelia MccrackenRT(R) (BS) Procedures Performed Procedure Location (Site) Vessel Name Coronary Angiograms RCA Right Coronary Wire insertion Radial (right) Radial Art. Equipment Time Airplane Inspector Description Size Mfg Part Number Used/Scraped CATHETER, FR5 SWAN BEREKET 11:57 FRANCO GANDHI FR 5 [id number] *[id number] Used MONITOR TRANSDUCER, TRUWAVE [id number] 11:29 FRANCO GANDHI * Used W/STOCKCOCK *[id number] TRANSDUCER, TRUWAVE [id number] 11:29 FRANCO GANDHI * Used W/STOCKCOCK *[id number] INTRODUCER SET, 11:29 [employer] FR 5 [id number] *[id number] Used MICROPUNCTURE STIFF [id number] *[id number] 11:29 [employer] INDUSTRIES PACK, CCL CUSTOM * Used *[id number] 12:20 MEDTRONIC JR 4.0 DXTERITY CATHETER FR 5 Used *[id number] BAND, RADIAL COMPRESSION TR [id number] 12:52 [employer] 24CM Used SHORT 24 *[id number] 12:38 [employer] SHEATH, FR5.5 PRELUDE 11CM FR 5 [id number] Used [id number] 11:29 [employer] WIRE, 3MMJ .035 180CM 180CM Used *[id number] 11:29 NAMIC MANIFOLD, 2 PORT * Used *[id number] 11:29 NAMIC MANIFOLD, 4 PORT * Used *[id number] 11:29 NYCOMED OMNIPAQUE, 350 MG, 150ML 150ML [id number] Used [id number] 11:29 FRANCIS MEDICAL BLANKET,WARM AIR CCL * Used *[id number] SHEATH, FR6 TRANSRADIAL RM*[id number] 11:33 [employer] MEDICAL FR 6 Used SLENDER 10CM *[id number] SHEATH, FR6 TRANSRADIAL RM*[id number] 11:33 [facility] MEDICAL FR 6 Used SLENDER 10CM *[id number] SHEATH, FR6 TRANSRADIAL RM*[id number] 11:33 [facility] FR 6 Used SLENDER 10CM *[id number] SHEATH, FR6 TRANSRADIAL RM*[id number] 12:17 [facility] FR 6 Used SLENDER 10CM *[id number] History: Current Medications Medication Dosage/Unit Route Frequency Last Date/Time Taken Albuterol Glucophage NORVASC History: Allergies Allergy Reaction albuterol TACHYCARDIA Penicillin SOB strawberry RASH penicillin G SOB History: Risk Factors Family History of Hypertension Dyslipidemia Previous [place] Previous Heart Failure Premature CAD Yes No No No No Prior Valve Prior PCI Prior CABG Surgery No No No Cerebrovascular Peripheral Artery Chronic Lung On Dialysis Diabetes Diabetes Therapy Disease Disease Disease No No No No Yes Oral History: Symptoms/Diagnosis Selection Items SOB History: Stress Tests Stress or Imaging Studies Performed No History: Other Disease Selection Items HTN History: Other Current Smoker No Labs Hgb (g/dl) Hct (%) RBC (MIL/MM3) WBC (l/cumm) Platelets (thousands) 11.60-17.00 35.00-51.00 4.00-5.90 4.00-11.00 150.00-450.00 14.5 43.7 4.6 11.4 422 Glucose (mg/dl) BUN (mg/dl) Creatinine (mg/dl) BUN:Creatinine (1:x) 74.00-106.00 7.00-18.00 0.50-1.30 10.00-20.00 409 23 1.4 16.4 Na (meq/l) K (meq/l) Cl (meq/l) CO2 (mmol/L) Ca (mg/dl) 136.00-145.00 3.50-5.10 98.00-107.00 21.00-32.00 8.50-10.10 135 4.1 102 22 8.5 PT (sec) PTT (sec) INR (PTT:PT) 9.80-11.60 24.30-30.10 0.90-1.10 10.5 18.4 1 CPK-MB (ng/ML) 0.50-3.60 Not Drawn Medication Medication Total Dose (Bolus/Oral) Medication Total Dosage/Unit 1% XYLOCAINE 40 mL FENTANYL 50 mcg LASIX 40 mg OXYGEN 5 l/min RADIAL COCKTAIL 5 mL (Bolus) Medications (Bolus/Oral) Medication Time Given Dosage/Unit Administered By Reason OXYGEN 05/10/2017 11:22:26 AM 2 l/min Viji Gómez 2 l/min OXYGEN given in lab by Viji Gómez RN via Nasal. Ordered by Wai Guido OXYGEN 05/10/2017 11:45:12 AM 3 l/min Viji Gómez 3 l/min OXYGEN given in lab by Viji Gómez RN via Nasal. Ordered by Wai Guido FENTANYL 05/10/2017 12:01:00 PM 50 mcg John Hall 50 mcg FENTANYL given in lab by John Hall RN via Peripheral IV. Ordered by Wai Guido 1% XYLOCAINE 05/10/2017 12:01:33 PM 10 mL Wai Guido 10 mL 1% XYLOCAINE given in lab by Wai Guido in Right Radial via Subcutaneous. Ordered by Wai Park 1% XYLOCAINE 05/10/2017 12:04:42 PM 5 mL Wai Guido 5 mL 1% XYLOCAINE given in lab by Wai Guido in Right Antecubital via Subcutaneous. Ordered by Wai Guido Ntg 200mcg Verapamil 2.5mg Heparin RADIAL COCKTAIL 05/10/2017 12:04:52 PM 5 mL (Bolus) Wai Guido 3000U 5 mL (Bolus) RADIAL COCKTAIL given in lab by Wai Guido via Radial. Using [Solution Name]. O rdered by Wai Guido Reason: Ntg 200mcg Verapamil 2.5mg Heparin 2400U. 1% XYLOCAINE 05/10/2017 12:14:52 PM 5 mL Wai Guido 5 mL 1% XYLOCAINE given in lab by Wai Guido in Right Antecubital via Subcutaneous. Ordered by Wai Guido 1% XYLOCAINE 05/10/2017 12:34:44 PM 20 mL Wai Guido 20 mL 1% XYLOCAINE given in lab by Wai Guido in Right Groin via Subcutaneous. Ordered by Wai Kulkarni LASIX 05/10/2017 12:58:40 PM 40 mg John Hall 40 mg LASIX given in lab by John Hall RN via Peripheral IV. Ordered by Wai Guido Medication (Drip) Medication Time Given Dosage/Unit Concentration/Unit Diluent (ml) Solution IV Solutions 05/10/2017 11:33:41 AM 0 mL (IV) 500 NaCl .9 IV Solutions given in lab by Viji Gómez RN in Left Antecubital via Peripheral IV. Pump/Drip Nolan w = 20 ml/hr using NaCl .9. Ordered by Wai Guido Initial Case Assessment Cardiovascular HR NIBP Chest Pain 120 123/82 0 Edema Present Skin color Skin None Normal Warm Dry Circulatory - Right Pulses Dorsalis Pedis Femoral Radial 1 1 3 Scale (0,1,2,3,4,d) Circulatory - Left Pulses Dorsalis Pedis Femoral Radial 1 1 Scale (0,1,2,3,4,d) Neurological State Oriented to time-place- Alert Moves all extremities person Respiration - General Respiration Rate SpO2 (%) O2 (lpm) (B/min) 15 89 3 Final Case Assessment Cardiovascular HR NIBP Chest Pain 120 123/82 0 Edema Present Skin color Skin None Normal Warm Dry Circulatory - Right Pulses Dorsalis Pedis Femoral Radial 1 1 3 Scale (0,1,2,3,4,d) Circulatory - Left Pulses Dorsalis Pedis Femoral Radial 1 1 Scale (0,1,2,3,4,d) Neurological State Oriented to time-place- Alert Moves all extremities person Respiration - General Respiration Rate SpO2 (%) O2 (lpm) (B/min) 15 89 3 Chronological Log Time Study Chronological Log 11:22:24 Patient arrived via Bed. 11:22:25 Patient Name, D.O.B, / Armband Verified By R.N. 11:22:26 2 l/min OXYGEN given in lab by Viji Gómez, PATRICIA via Nasal. Ordered by Wai Guido 11:22:26 Consent signed by the physician and the patient and verified by the Traffic Observer staff. 11:22:27 Verbal Stimulation=2 Physical Stimulation=2 Airway=2 Respiration=2 TOTAL=8. (0=absent, 1=li mited, 2=present) 11:22:28 Pre-op and post- op instructions given; patient acknowledges understanding of instructions. 11:22:34 Patient has been NPO for More than 6Hrs. 11:22:35 NO Skin Breakdown- 11::36 Patient Warmer Placed on the Table. 11:22:37 Rere Prominences Protected 11::40 A # 20 IV was noted in the Antecubital (right). Grade = 0 11::43 History and physical on the chart or being dictated. 11:33:11 A # 20 IV was noted in the Antecubital (left). Grade = 0 Vitals capture started with the following parameters, Patient=Adult, Interval=5 min, Initial Pr xqbcko=161 mmHg, :33:40 Deflation Rate=5 mmHg, Cuff placed on Left Arm IV Solutions given in lab by Viji Gómez, PATRICIA in Left Antecubital via Peripheral IV. Pump/Dr ip Flow = 20 ml/hr using 11:33:41 NaCl .9. Ordered by Wai Guido 11:33:53 Allens test performed on the right radial and ulnar artery. 11:34:01 Vitals capture stopped. Vitals capture started with the following parameters, Patient=Adult, Interval=5 min, Initial Pr dufhuj=041 mmHg, 11:40:11 Deflation Rate=5 mmHg, Cuff placed on Left Arm 11:40:46 UL=129 bpm, QRIH=065/82 mmhg, SpO2=89 %, Resp=15 B/min, Pain=0, Shelli=10, Hardy=2 11:43:02 Reference ECG taken Assessment: Initial Case, NW=054 BPM, CNRR=755/82 mmhg, Chest Pain=0, Edema=None, Color=Normal, Skin = Warm, Dry Right Pulses: Andrews Ped=1, Femoral=1, Radial=3 11:43:27 Left Pulses: Andrews Ped=1, Femoral=1 Neurological: State=Alert, Ox3, SALDAÑA Respiration: Resp=15 B/min, SpO2=89 %, O2=3 lpm 11:45:12 3 l/min OXYGEN given in lab by Viji Gómez, RN via Nasal. Ordered by Wai Guido 11:45:38 Right Radial and groin(s) prepped with 2% chlorhexidine, and draped after a 3 min. waiting time. 11:45:43 OZ=318 bpm, FDSU=766/89 mmhg, SpO2=89.0 %, Resp=15 B/min, Pain=0, Shelli=10, Hardy=2 11:50:42 TP=907 bpm, DGIW=047/90 mmhg, SpO2=93.0 %, Resp=29 B/min, Pain=0, Shelli=10, Hardy=2 11:53:59 Pressure channel 1 zeroed. 11:55:43 OV=207 bpm, SVKH=221/91 mmhg, SpO2=93.0 %, Resp=24 B/min, Pain=0, Shelli=10, Hardy=2 11:57:14 MD arrived. Time Out. Correct patient, correct procedure, correct physician, power injector not loaded with contrast with surgical 12:00:24 team present. Time Out Concurred by MD and individual staff in procedure. 12:00:42 UW=191 bpm, CTTC=556/95 mmhg, SpO2=92.0 %, Resp=29 B/min, Pain=0, Shelli=10, Hardy=2 12:00:50 Case Start 12:01:00 50 mcg FENTANYL given in lab by John Hall, RN via Peripheral IV. Ordered by Anupama Guido. 10 mL 1% XYLOCAINE given in lab by Wai Guido in Right Radial via Subcutaneous. Ordere d by Hay, 12:01:33 Wai Aguilar. 12:02:46 Access site was Right Radial Artery. A SHEATH, FR6 TRANSRADIAL SLENDER 10CM FR 6 was advanced into the Radial (right) using the Perc utaneous 12::59 technique. 5 mL 1% XYLOCAINE given in lab by Wai Guido in Right Antecubital via Subcutaneous. Or dered by Hay, 12:04:42 Wai Aguilar. 5 mL (Bolus) RADIAL COCKTAIL given in lab by Wai Guido via Radial. Using [Solution Na me]. Ordered by 12:04:52 Wai Guido. Reason: Ntg 200mcg Verapamil 2.5mg Heparin 2400U. 12:05:49 EZ=707 bpm, FVJF=490/69 mmhg, SpO2=86.0 %, Resp=26 B/min, Pain=0, Shelli=10, Hardy=2 A SHEATH, FR6 TRANSRADIAL SLENDER 10CM FR 6 was advanced into the Antecubital (right) using the Percutaneous ::22 technique. 12:10:42 UZ=540 bpm, XTFP=669/80 mmhg, SpO2=91.0 %, Resp=26 B/min, Pain=0, Shelli=10, Hardy=2 12:14:32 Sheath removed from right AC 5 mL 1% XYLOCAINE given in lab by Wai Guido in Right Antecubital via Subcutaneous. Or dered by Hay, 12:14:52 Wai Aguilar. 12:15:43 AT=097 bpm, PUNP=552/75 mmhg, SpO2=91.0 %, Resp=24 B/min, Pain=0, Shelli=10, Hardy=2 12:16:12 Access site was Right Brachial Vein. A SHEATH, FR6 TRANSRADIAL SLENDER 10CM FR 6 was advanced into the Brach. Vein (right) using the Percutaneous :: technique. 12:17:44 A CATHETER, FR5 SWAN BEREKET MONITOR FR 5 was inserted via Brach. Vein (right) 12:19:04 Divide Bereket Catheter Removed A JR 4.0 DXTERITY CATHETER FR 5 was advanced over a wire. OMNIPAQUE, 350 MG, 150ML 150ML was us ed for ::22 injections. 12:20:46 WB=401 bpm, JATE=644/75 mmhg, SpO2=91.0 %, Resp=27 B/min, Pain=0, Shelli=10, Hardy=2 Recorded Pressure: LV, YX=899, Condition=Condition 1 12:21:36 (Left Ventricle) LV 116/30/42 Recorded Pressure: Ao, TI=350, Condition=Condition 1 12:22:08 (Aorta) Ao 117/77/96 12:22:45 The RCA was injected and visualized at various angles. OMNIPAQUE, 350 MG, 150ML 150ML used . After removing the current catheter a JL 3.5 INFINITI CATHETER FR 5 was advanced over a WIRE, 3 MMJ .035 180CM 12:23:43 180CM. Recorded Pressure: Ao, [place]=869, Condition=Condition 1 12:25:35 (Aorta) Ao 115/73/92 12:25:47 UG=375 bpm, BAVQ=826/84 mmhg, SpO2=92.0 %, Resp=15 B/min, Pain=0, Shelli=10, Hardy=2 12:30:41 A WIRE, 3MMJ .035 180CM 180CM was inserted via Radial (right). 12:30:46 SS=612 bpm, DQYN=341/93 mmhg, SpO2=91.0 %, Resp=15 B/min, Pain=0, Shelli=10, Hardy=2 12:30:51 Catheter was removed 20 mL 1% XYLOCAINE given in lab by Wai Guido in Right Groin via Subcutaneous. Ordered by Hay, 12:34:44 Wai Aguilar. 12:36:14 IY=411 bpm, DJJL=991/83 mmhg, SpO2=88.0 %, Resp=15 B/min, Pain=0, Shelli=10, Hardy=2 12:37:06 Access site was Right Femoral Artery. A SHEATH, FR5.5 PRELUDE 11CM FR 5 was advanced into the Fem Vein (right) using the Modified Nevaeh luis 12:37:31 technique. 12:38:24 A CATHETER, FR5 SWAN BEREKET MONITOR FR 5 was inserted via Fem Vein (right) 12:40:50 ZR=694 bpm, EAVA=965/83 mmhg, SpO2=88 %, Resp=21 B/min, Pain=0, Shelli=10, Hardy=2 Recorded Pressure: PCW, JH=598, Condition=Condition 1 12:42:22 (Pulmonary Capillary Wedge) PCW 65/66/54 Recorded Pressure: MPA, GA=253, Condition=Condition 1 12:45:31 (Main Pulmonary Artery) MPA 68/47/59 12:45:47 QQ=362 bpm, OYYD=026/89 mmhg, Resp=15 B/min, Pain=0, Shelli=10, Hardy=2 Recorded Pressure: RV, BY=932, Condition=Condition 1 12:47:05 (Right Ventricle) RV /22/22 Recorded Pressure: RA, QC=586, Condition=Condition 1 12:47:19 (Right Atrium) RA 12:47:37 Divide Bereket Catheter Removed 12:50:51 SS=200 bpm, SRZD=095/78 mmhg, SpO2=88.0 %, Resp=26 B/min, Pain=0, Shelli=10, Hardy=2 12:51:06 Catheter was removed 12:51:14 Case End 12:51:28 Activated Clotting Time Drawn Assessment: Final Case, DJ=284 BPM, PUNF=819/82 mmhg, Chest Pain=0, Edema=None, Color=Normal, S kin = Warm, Dry Right Pulses: Andrews Ped=1, Femoral=1, Radial=3 12:51:45 Left Pulses: Andrews Ped=1, Femoral=1 Neurological: State=Alert, Ox3, SALDAÑA Respiration: Resp=15 B/min, SpO2=89 %, O2=3 lpm 12:51:57 Catheter(s) removed without difficulty Radial Compression Device Used. 11 mLs of air placed in BAND, RADIAL COMPRESSION TR SHORT 24 24 CM. Affected 12:52:01 hand ~O2 SATURATION~ % O2 saturation. 12:52:27 Sterile dressing applied to site 12:52:57 ACT (Normal Range 90-180) = 190 12:53:45 No case complications noted. 12:53:53 Cine recording checked. 12:53:55 Bedside Report will be given. 12:54:06 A Left and Right Heart Cath was performed. 12:56:05 Vitals capture stopped. 12:57:55 Venous Groin Sheath removed; pressure applied to access site. 12:58:31 Venous Brachial Sheath removed; pressure applied to access site. 12:58:40 40 mg LASIX given in lab by John Hall, RN via Peripheral IV. Ordered by Ye Guido 13:04:06 Patient moved to [facility] End Study - Contrast Media Used In Study Contrast Total Opened (mL) Total Used (mL) Total Wasted (mL) Omnipaque 35 35 0 End Study - Maximum Contrast Load Max Contrast Load (mL) 221.4 End Study - Radiation Exposure Fluoro Time (minutes) 5.9 End Study - Patient Disposition Complications Transferred To Interventional Outcome No Critical Care Bed No attempt made
[2017-05-10] MEDS ORDERED: LORazepam 2 MG/ML VIAL ONE (13:45)
--- NOTE | 2017-05-10 13:54 | ECHRPT ---
Indication: Heart Failure CONCLUSIONS The left ventricular systolic function is severely reduced with an estimated ejection fraction less than 20%. Global hypokinesis. Wall thickness is normal. Moderately dilated left ventricle. Mitral annular calcification is present. Moderate mitral valve regurgitation. There is trace tricuspid valve regurgitation. The estimated pulmonary arterial pressure is 28 mmHg. BP: 99 / 73 HR: 108 Rhythm: Sinus MEASUREMENTS (Male / Female) Normal Values Technical Quality:Fair 2D ECHO LV Diastolic Diameter PLAX 5.9 cm 4.2 - 5.9 / 3.9 - 5.3 cm LV Systolic Diameter PLAX 5.5 cm IVS Diastolic Thickness 0.7 cm 0.6 - 1.0 / 0.6 - 0.9 cm LVPW Diastolic Thickness 0.7 cm 0.6 - 1.0 / 0.6 - 0.9 cm LV Relative Wall Thickness 0.2 RV Internal Dim ED PLAX 2.2 cm LVOT Diameter 1.9 cm LA Systolic Diameter LX 3.4 cm 3.0 - 4.0 / 2.7 - 3.8 cm M-MODE Aortic Root Diameter MM 2.4 cm LA Systolic Diameter MM 3.6 cm LA Ao Ratio MM 1.5 MV E Point Septal Separation 2.6 cm AV Cusp Separation MM 1.4 cm DOPPLER AV Peak Velocity 74.3 cm/s AV Peak Gradient 2.2 mmHg LVOT Peak Velocity 71.3 cm/s LVOT Peak Gradient 2.0 mmHg AV Area Cont Eq pk 2.7 cm MV Area PHT 8.1 cm Mitral E Point Velocity 84.5 cm/s Mitral A Point Velocity 54.4 cm/s Mitral E to A Ratio 1.6 LV E' Lateral Velocity 4.4 cm/s Mitral E to LV E' Lateral Ratio 19.2 LV E' Septal Velocity 1.8 cm/s Mitral E to LV E' Septal Ratio 45.9 TR Peak Velocity 215.0 cm/s TR Peak Gradient 18.5 mmHg Right Atrial Pressure 10.0 mmHg Pulmonary Artery Systolic Pressu 28.5 mmHg Right Ventricular Systolic Press 28.5 mmHg FINDINGS LEFT VENTRICLE The left ventricular systolic function is severely reduced with an estimated ejection fraction less than 20%. Global hypokinesis. Wall thickness is normal. Moderately dilated left ventricle. RIGHT VENTRICLE Normal right ventricular size and systolic function. LEFT ATRIUM The left atrial size is normal. RIGHT ATRIUM The right atrial size is normal. ATRIAL SEPTUM Normal atrial septal thickness without atrial level shunting by limited color doppler interrogation. AORTA The aortic root and proximal ascending aorta are normal in size on limited imaging. MITRAL VALVE Mitral annular calcification is present. Moderate mitral valve regurgitation. AORTIC VALVE Trileaflet aortic valve. No aortic valve stenosis or regurgitation. TRICUSPID VALVE Structurally normal tricuspid valve. There is trace tricuspid valve regurgitation. The estimated pulmonary arterial pressure is 28.5 mmHg. PULMONARY VALVE No pulmonary valve regurgitation or stenosis. VESSELS The inferior vena cava is normal in size. PERICARDIUM No pericardial effusion. Jass Burks MD (Electronically Signed) Final Date:10 May 2017 13:53
[2017-05-10 13:57] LABS: HEMOGLOBIN A1C 7.6 % (4.3-6.0)
[2017-05-10] MEDS ORDERED: METOPROLOL TARTRATE 5 MG/5 ML VIAL ONE ×2 (13:58→15:54)
--- NOTE | 2017-05-10 13:58 | EKG ---
Date Performed: 05/09/2017 Time Performed: 13:33:16 PTAGE: 51 years EKG: SINUS TACHYCARDIA RIGHT ATRIAL ABNORMALITY LEFT ATRIAL ABNORMALITY POOR R-WAVE PROGRESSION POSSILBE OLD ANTEROSEPTAL MN ANTEROSEPTAL MN VS LEAD PLACEMENT ABNORMAL ECG Compared to PREVIOUS TRACING , there has been loss of R-waves in the anteroseptal leads. PREVIOUS TRA CIN07/22/2012 09.51 DOCTOR: Rei Aguillon Interpretating Date/Time 05/10/2017 13:58:16
--- NOTE | 2017-05-10 14:02 | EKG ---
Date Performed: 05/09/2017 Time Performed: 16:38:40 PTAGE: 51 years EKG: SINUS TACHYCARDIA POOR R-WAVE PROGRESSION CANNOT EXCLUDE OLD ANTERIOR INFARCT SLIGHT ST BEATA VATION IN V4 AND V6, CANNOT EXCLUDE ACUTE INJURY, CLINICAL CORRELATION NEEDED. PREVIOUS TRACING 05/09/2017 13.33.16 DOCTOR: Rei Aguillon Interpretating Date/Time 05/10/2017 14:00:56
[2017-05-10] MEDS ORDERED: IOHEXOL 350 MG/ML 50 ML BTL (for Cath Lab) OTHER ONE (14:17)
[2017-05-10] MEDS ORDERED: LIDOCAINE HCL 2% 100 MG/5 ML SYRINGE ONE (14:36)
[2017-05-10] MEDS ORDERED: MIDAZOLAM HCL 5 MG/ML VIAL (1 ML) ONE (14:37)
[2017-05-10] MEDS ORDERED: LORazepam 2 MG/ML VIAL IV PUSH ONE (15:45)
[2017-05-10] MEDS ORDERED: MAGNESIUM SULFATE 1 GM PREMIX 200 ML ONE (15:51)
[2017-05-10] MEDS ORDERED: EPINEPHrine HCL (1:1000) 1 MG/ML VIAL ONE (15:56)
[2017-05-10] MEDS ORDERED: NITROGLYCERIN 1000 MCG/5 ML VIAL OTHER ONE (16:00)
[2017-05-10] MEDS ORDERED: HEPARIN SODIUM - IV 10,000 UNITS/10 ML VIAL OTHER ONE (16:00)
[2017-05-10] MEDS ORDERED: FUROSEMIDE 40 MG/4 ML VIAL IV PUSH ONE (16:00)
[2017-05-10] MEDS ORDERED: VERAPAMIL HCL 5 MG/2 ML VIAL OTHER ONE (16:00)
--- NOTE | 2017-05-10 16:07 | RADRPT ---
EXAM DATE/TIME: 05/10/2017 15:49 [place] COMPARISON: CHEST SINGLE AP, May 09, 2017, 13:59. INDICATIONS : Post intubation and central line placement. MEDICAL HISTORY : Asthma. SURGICAL HISTORY : None. ENCOUNTER: Initial ACUITY: 1 day PAIN SCORE: Non-responsive. LOCATION: Bilateral chest FINDINGS: There is an endotracheal tube in place. The endotracheal tube appears to be in good position at the l evel of the thoracic aortic arch. No pneumothorax. There is a right central line in place. No pneumot horax. There are patchy infiltrates in both lung bases. Heart size is mildly prominent but stable. No definite pleural effusions. CONCLUSION: 1. The endotracheal tube and right-sided central line are in good position. 2. No pneumothorax. Roberto Skelton MD on May 10, 2017 at 16:04 Board Certified Radiologist. This report was verified electronically.
[2017-05-10] MEDS ORDERED: METOPROLOL TARTRATE 5 MG/5 ML VIAL IV PUSH ONE (16:15)
[2017-05-10] MEDS ORDERED: SUCCINYLCHOLINE CHLORIDE 200 MG/10 ML VIAL IV PUSH ONE (16:15)
[2017-05-10] MEDS ORDERED: MIDAZOLAM HCL 5 MG/ML VIAL (1 ML) IV PUSH ONE (16:15)
[2017-05-10] MEDS ORDERED: LIDOCAINE HCL 2% 100 MG/5 ML SYRINGE IV PUSH ONE (16:15)
[2017-05-10] MEDS ORDERED: ROCURONIUM INJ 50 MG/5 ML VIAL IV PUSH ONE (16:15)
[2017-05-10] MEDS ORDERED: MAGNESIUM SULFATE 1 GM PREMIX 100 ML IV SCH (16:15)
[2017-05-10] MEDS ORDERED: MIDAZOLAM 100 MG/NS 100 ML DRIP Premix IV PRN (16:15)
[2017-05-10] MEDS: MIDAZOLAM 100 MG/NS 100 ML DRIP Premix IV PRN (16:53)
[2017-05-10 17:04] LABS: TROPONIN I 15.8 NG/ML (0.02-0.05)
[2017-05-10] MEDS ORDERED: NOREPINEPHRINE-DEXTROSE DRIP 250 ML IV ONE (17:18)
--- NOTE | 2017-05-10 17:26 | PD.PROCEDR ---
Procedure Note Procedure Endotracheal Intubation Diagnosis: Cardiogenic shock Indications: Cardiogenic shock with associated acute hypoxic and hypercarbic respiratory failure Consent: Emergent Anesthesia: Versed 2 mg IV, lidocaine 100 mg IV, succinylcholine 100 mg IV Description of the Procedure: The patient was positioned in the sniffing position. Pre-oxygenation was performed using a 100% FiO2 BiPAP. Anesthesia was induced via rapid sequence. A Cuadra #2 was used for laryngoscopy and a Grade I view was obtained. A 8.0 cuffed endotracheal tube was inserted atraumatically through the vocal cords. Confirmation of correct endotracheal tube placement was made by equal and bilateral breath sounds and colorimetric CO2 detection. The endotracheal tube was secured at 22 cm at the teeth. Postprocedure, the patient was acutely hypotensive and hemodynamically unstable. Please see separate documentation for resuscitative details. A chest x-ray has been ordered. I personally performed the procedure. Judd Worrell MD May 10, 2017 17:26
--- NOTE | 2017-05-10 17:27 | PD.PROCEDR ---
Procedure Note Procedure Procedure: Arterial Line Placement Left radial arterial line Diagnosis: Cardiogenic shock Indications: Need for beat to beat hemodynamic monitoring Consent: Emergent Description of the Procedure: The left wrist was prepped and draped sterilely. 1% lidocaine was used for local anesthesia. The pulse was located and a needle was advanced into the artery. A 20 gauge, 12 cm catheter was advanced into the artery using a modified Seldinger technique. The catheter was sutured to the skin and a sterile dressing was applied. The catheter was connected to a pressure transducer and an arterial waveform was noted. Ultrasound guidance was used to identify the left radial artery. Under direct ultrasound visualization, the needle was advanced into the artery. The vascular anatomy of the left wrist was normal. There were no immediate complications noted. There was minimal EBL. I personally performed the procedure. Judd Worrell MD May 10, 2017 17:27
--- NOTE | 2017-05-10 17:28 | PD.PROCEDR ---
Procedure Note Procedure Central Line Procedure Note Right IJ 8.5 Nepalese 10 cm introducer sheath Diagnosis: Cardiogenic shock Indications: Need for central pressure monitoring Consent: Emergent Anesthesia: Versed IV Description of the Procedure: The patient was placed in the supine, mild- Trendelenburg position. The area was prepped and draped sterilely. A 19g needle was inserted under negative pressure aspiration and dark venous blood was obtained. A guidewire was inserted easily without resistance. A small incision was made using a #11 blade. Using a modified Seldinger technique, the dilator and 8.5 Nepalese, 10 cm catheter were advanced over the guidewire without resistance. All ports were aspirated and flushed, and had brisk blood return. The line was secured at the skin using 2-0 silk interrupted sutures. A Biopatch and Transparent sterile dressing were applied. There were no immediate complications noted. There was minimal EBL. The patient tolerated the procedure well. Ultrasound Guidance: Ultrasound guidance was used to identify the right internal jugular vein. The vascular anatomy of the right anterior neck was normal. The vessel was cannulated under direct, real-time ultrasound visualization. After placement of the guidewire, confirmation of the guidewire in the lumen of the vessel was made using ultrasound visualization, before dilation of the tract. The central venous catheter was secured to the skin using suture because the StatLock device would not fit the geometry of the introducer sheath. A Chest x-ray has been ordered. I personally performed the procedure. Judd Worrell MD May 10, 2017 17:28
--- NOTE | 2017-05-10 17:32 | PD.PROCEDR ---
Procedure Note Procedure Pulmonary Artery Catheter Procedure Note Diagnosis: Cardiogenic shock Indications: Need for thermodilution cardiac output and central pressure monitoring Consent: Emergent Anesthesia: Versed IV Description of the Procedure: The patient was placed in the supine, mild-Reverse -Trendelenburg position. The area was prepped and draped sterilely. A 6 Fr pulmonary artery catheter was flushed, and all ports were checked, including PA , CVP, infusion port. The balloon was tested and inflated and deflated easily. Through an existing introducer sheath, the catheter was inserted to a depth of 20 cm and the balloon was inflated without resistance. The PA catheter was advanced under continuous waveform hemodynamic monitoring and appropriate RA, RV , PA, and PCWP waveforms were achieved. The balloon was deflated. The line was secured to the introducer sheath using a sterile cover. There were no immediate complications noted. There was minimal EBL. The patient tolerated the procedure well. PA catheter secured at: 40 cm. Hemodynamic Data: HR 109 Art 105/67 (80) RAP: 8 mmHg RV: 29/5 (15) mmHg PAP: 27/18 (21) mmHg PCWP: 13 mmHg achieved at 41 cm Mixed Venous SvO2: 66 % Cardiac Output: 2.3 L/min Cardiac Index: 1.4 SVR 2504 dyns*sec/cm^5 PVR 3.5 Duenas units A Chest x-ray has been ordered. I personally performed the procedure. Judd Worrell MD May 10, 2017 17:32
[2017-05-10] MEDS: NOREPINEPHRINE 4 MG/D5W 250 ML IV PRN ×2 (17:35→22:30)
[2017-05-10] MEDS ORDERED: RESP: RACEPINEPHRINE 2.25% 0.5 ML NEB NEB PRN (17:45)
[2017-05-10] MEDS: RESP: LEVALBUTEROL HYDROCHLORIDE 1.25 MG/3 ML NEB (SCH) NEB ×2 (20:13→23:50)
[2017-05-10] MEDS ORDERED: MIDAZOLAM HCL 2 MG/2 ML VIAL ONE (20:56)
[2017-05-10] MEDS ORDERED: MIDAZOLAM HCL 5 MG/5 ML VIAL ONE (21:05)
--- NOTE | 2017-05-10 22:25 | CATHPROC ---
[facility] HIS Report Study Information Study Number Admission Scheduled Start Study Start [id number] May 09 2017 3:37PM 05/10/2017 May 10 2017 8:50PM [facility] Cardiac Catheterization Admit Source Facility Department Emergency department [facility] [place] Supervisor Physician and Clinical Staff Initial Wai Robbins Hvac R Tech Casi Terrell,PATRICIA Hvac R TechAlice Waters BSN Scrub Marisela Broussard ,RT(R) Procedures Performed Procedure Location (Site) Vessel Name IABP Fem Art (right) Femoral Art Wire insertion Fem Art (right) Femoral Art Equipment Time Mate Fourth Description Size Mfg Part Number Used/Scraped TRANSDUCER, TRUWAVE [id number] 21:09 FRANCO GANDHI * Used W/STOCKCOCK *[id number] INTRODUCER SET, 21:09 [employer] FR 5 [id number] *[id number] Used MICROPUNCTURE STIFF BALLOON, FR7.5 40CC [id number] 21:19 MAQUET FR 7.5 40CC Used SENSATION PLUS 01U *[id number] 21:09 [employer] IND[employer]RIES PACK, CCL CUSTOM * Used *[id number] 21:20 NAMIC MANIFOLD, 4 PORT * Used *[id number] 21:09 NYCOMED OMNIPAQUE, 350 MG, 150ML 150ML [id number] Used [id number] 21:09 Splunk BLANKET,WARM AIR CCL * Used *[id number] 21:08 TERUMO MEDICAL SHEATH, FR8 TERUMO (10CM) FR 8 Used *[id number] History: Allergies Allergy Reaction albuterol TACHYCARDIA Penicillin SOB strawberry RASH penicillin G SOB Labs Hgb (g/dl) Hct (%) RBC (MIL/MM3) WBC (l/cumm) 11.60-17.00 35.00-51.00 4.00-5.90 4.00-11.00 14.5 43.7 4.6 11.4 Glucose (mg/dl) BUN (mg/dl) Creatinine (mg/dl) BUN:Creatinine (1:x) 74.00-106.00 7.00-18.00 0.50-1.30 10.00-20.00 409 23 1.4 16.4 Na (meq/l) K (meq/l) Cl (meq/l) CO2 (mmol/L) Ca (mg/dl) 136.00-145.00 3.50-5.10 98.00-107.00 21.00-32.00 8.50-10.10 135 4.1 102 22.1 8.5 PT (sec) PTT (sec) INR (PTT:PT) 9.80-11.60 24.30-30.10 0.90-1.10 10.5 18.4 1 Troponin I (ng/ml) CPK-MB (ng/ML) 0.02-0.05 0.50-3.60 0.28 Not Drawn Medication Medication Total Dose (Bolus/Oral) Medication Total Dosage/Unit 1% XYLOCAINE 20 mL VERSED 6 mg Medications (Bolus/Oral) Medication Time Given Dosage/Unit Administered By Reason VERSED 05/10/2017 8:56:50 PM 2 mg Adamy, Casi 2 mg VERSED given by Casi Terrell RN via Peripheral IV. Ordered by Wai Guido VERSED 05/10/2017 8:59:46 PM 2 mg Adamy, Casi 2 mg VERSED given by Casi Terrell RN via Peripheral IV. Ordered by Wai Guido VERSED 05/10/2017 9:05:26 PM 2 mg Adamy, Casi 2 mg VERSED given by Casi Terrell RN via Peripheral IV. Ordered by Wai Guido 1% XYLOCAINE 05/10/2017 9:24:55 PM 20 mL Wai Guido 20 mL 1% XYLOCAINE given in lab by Wai Guido in Right Groin via Subcutaneous. Initial Case Assessment Cardiovascular HR NIBP 110 115/78 Circulatory - Right Pulses Dorsalis Pedis Femoral 2 2 Scale (0,1,2,3,4,d) Scale (0,1,2,3,4,d) Neurological State Unresponsive Respiration - Ventilator Type Intubation Type ET(oral) Respiration - Ventilator Settings TV (ml) IMV (L) FIO2 (%) PEEP (cm/H2O) 550 16 100 8 Chronological Log Time Study Chronological Log 20:50:10 Patient arrived via Bed Intubated. For IABP placement by Dr. Guido. 20:50:11 MD arrived. 20:50:13 Patient Name, D.O.B, / Armband Verified By R.N. 20:51:15 A # 20 IV was noted in the Antecubital (left). Grade = 0 Vitals capture started with the following parameters, Patient=Adult, Interval=5 min, Initial Pr xosseb=921 mmHg, 20:52:32 Deflation Rate=5 mmHg, Cuff placed on Unknown 20:52:34 Consent signed by the physician and the patient and verified by the [place] Super[facility] staff. 20:52:36 Pre-op and post- op instructions given; patient acknowledges understanding of instructions. 20:53:07 NIBP=96/67 mmhg, Hardy=1 20:53:41 Presedation assessment performed by [facility] Supervisor RN. 20:56:50 2 mg VERSED given by Casi Terrell RN via Peripheral IV. Ordered by Wai Guido 20:58:29 IKNJ=629/85 mmhg, Hardy=1 20:59:46 2 mg VERSED given by Casi Terrell RN via Peripheral IV. Ordered by Wai Guido 20:59:56 See patient emr for full list of drips pt arrived on. 21:00:27 Vitals capture stopped. Vitals capture started with the following parameters, Patient=Adult, Interval=5 min, Initial Pr wbcgjp=188 mmHg, 21:00:28 Deflation Rate=5 mmHg, Cuff placed on Unknown 21:00:58 UNCJ=706/77 mmhg, Hardy=1 21:03:16 Patient moved to procedure table at this time. 21:05:26 2 mg VERSED given by Casi Terrell RN via Peripheral IV. Ordered by Wai Guido 21:06:44 GSWP=893/80 mmhg, Hardy=1 21:09:06 Dr. Worrell arrived to adminstrate paralytic to pt. 21:10:31 Reference ECG taken 21:10:56 WL=485 bpm, EFNO=415/107 mmhg, WvI4=004.0 %, Resp=7 B/min, Hardy=6 21:11:17 Vitals capture stopped. Vitals capture started with the following parameters, Patient=Adult, Interval=5 min, Initial Pr huaggq=294 mmHg, 21:11:18 Deflation Rate=5 mmHg, Cuff placed on Unknown 21:11:47 AV=206 bpm, RPEI=166/78 mmhg, Resp=12 B/min, Hardy=2 21:12:22 Consent signed by the physician and the patient and verified by the [place] staff. 21:12:26 Pre-op and post- op instructions given; patient acknowledges understanding of instructions. Assessment: Initial Case, RS=292 BPM, QQKU=502/78 mmhg Right Pulses: Andrews Ped=2, Femoral=2 21:12:53 Neurological: State=Unresponsive Respiration: Type=ET(Oral), SG=137 mL, IMV=16 L, OWC9=543 %, PEEP=8 cm/H2O 21:15:43 Bilateral groins prepped with 2% chlorhexidine, and draped after a 3 minute waiting time. 21:16:46 MK=620 bpm, JJVV=229/77 mmhg, Resp=13 B/min, Hardy=6 21:20:59 Pressure channel 1 zeroed. 21:21:45 KF=295 bpm, VONY=157/71 mmhg, Resp=13 B/min, Shelli=5 Time Out. Correct patient, correct procedure, correct physician, power injector loaded with con trast with surgical team 21:23:38 present. Time Out Concurred by MD and individual staff in procedure. 21:24:52 Case Start 21:24:55 20 mL 1% XYLOCAINE given in lab by Wai Guido in Right Groin via Subcutaneous. 21:26:44 IF=631 bpm, NIBP=91/67 mmhg, Resp=13 B/min, Shelli=4 21:27:01 Access site was Right Femoral Artery. with MP kit 21:27:16 A wire was inserted via Fem Art (right). 21:27:21 A SHEATH, FR8 TERUMO (10CM) FR 8 was advanced into the Fem Art (right) using the Percutaneo us technique. 21:28:20 An injection in the Fem Art (right) was made through the SHEATH, FR8 TERUMO (10CM) FR 8. 21:31:43 LR=331 bpm, NIBP=99/73 mmhg, SpO2=99.0 %, Resp=11 B/min, Shelli=5 21:32:56 Sheath exchanged for intra-aortic balloon insertion. 21:36:47 TR=916 bpm, NIBP=97/70 mmhg, SpO2=99 %, Resp=22 B/min, Shelli=5 An BALLOON, FR7.5 40CC SENSATION PLUS FR 7.5 40CC was advanced to the descending aorta. Proper placement 21:38:44 was confired under fluoroscopy and the balloon was sutured in place. Ratio = ~RATIO~. Augmented BP ~SYS~/~PRAVEEN~ 21:41:46 CB=829 bpm, NIBP=95/69 mmhg, Resp=22 B/min, Shelli=5 21:46:45 LL=464 bpm, GNLN=591/74 mmhg, SpO2=98.0 %, Resp=22 B/min, Shelli=5 21:51:48 NI=725 bpm, NIBP=99/73 mmhg, Resp=20 B/min, Shelli=5 21:56:49 HR=98 bpm, NUHH=137/68 mmhg, SpO2=99.0 %, Resp=16 B/min, Shelli=5 22:00:34 In the Fem Art (right) the sheath was sutured in place by Marisela Broussard , RT(R) . balloon pump sheath 22:00:51 Case End 22:00:52 Sterile dressing applied to site 22:00:53 No case complications noted. 22:00:54 Cine recording checked. 22:00:59 Bedside Report will be given. 22:01:52 HR=98 bpm, SYHX=640/67 mmhg, GlD8=848 %, Resp=15 B/min, Hardy=5 22:06:51 HR=99 bpm, ORTX=123/68 mmhg, SpO2=99.0 %, Resp=15 B/min, Hardy=5 22:11:52 HR=97 bpm, IYRW=786/62 mmhg, SpO2=99.0 %, Resp=15 B/min, Hardy=5 22:16:51 HR=97 bpm, NIBP=99/65 mmhg, SpO2=99.0 %, Resp=15 B/min, Hardy=5 22:19:00 Vitals capture stopped. 22:20:18 Bedside Report will be given. 22:24:10 Patient moved to stretcher End Study - Contrast Media Used In Study Contrast Total Opened (mL) Total Used (mL) Total Wasted (mL) Unspecified 0 0 0 Omnipaque 5 5 0 End Study - Maximum Contrast Load Max Contrast Load (mL) 217.5 End Study - Radiation Exposure Fluoro Time (minutes) 1.1 End Study - Patient Disposition Complications Transferred To No Critical Care Bed
--- NOTE | 2017-05-10 23:36 | PD.CARD.PN ---
Subjective Subjective Remarks Please see dictations for complete report from today Originally seen this morning in consultation Cardiac cath with multi-vessel CAD Afterwards needing intubated Discussed with Dr. Worrell Attempting to transfer to tertiary center for consideration of bypass, LVAD or transplant IABP placed Objective Medications Current Medications Medications (Trade) Dose Ordered Sig/Teresa Route Start Time Stop Time Status Last Admin Potassium Chloride 100 ml @ 50 mls/hr Q2H PRN IV 05/09/17 17:15 Potassium Chloride 100 ml @ 50 mls/hr Q2H PRN IV 05/09/17 17:15 (K-Lyte Cl Eff) 50 meq UNSCH PRN PO 05/09/17 17:15 Potassium Chloride 100 ml @ 25 mls/hr UNSCH PRN IV 05/09/17 17:15 Potassium Chloride 100 ml @ 50 mls/hr Q2H PRN IV 05/09/17 17:15 Magnesium Sulfate 4 gm/Sodium Chloride 100 ml @ 50 mls/hr UNSCH PRN IV 05/09/17 17:15 (Mag-Ox) 800 mg UNSCH PRN PO 05/09/17 17:15 Magnesium Sulfate 2 gm/Sodium Chloride 100 ml @ 50 mls/hr UNSCH PRN IV 05/09/17 17:15 (K-Phos) 2,000 mg Q4H PRN PO 05/09/17 17:15 Sodium Phosphate 30 mmol/Sodium Chloride 250 ml @ 42 mls/hr UNSCH PRN IV 05/09/17 17:15 (K-Phos) 2,000 mg UNSCH PRN PO/TUBE 05/09/17 17:15 Potassium Phosphate 30 mmol/ Sodium Chloride 260 ml @ 42 mls/hr UNSCH PRN IV 05/09/17 17:15 (D50w (Vial) Inj) 25 ml UNSCH PRN IV PUSH 05/09/17 17:15 (NovoLIN R SUPPLEMENTAL SCALE) 1 Q6HR SQ 05/09/17 18:00 05/10/17 18:56 (Pepcid) 20 mg Q12HR PO 05/09/17 21:00 05/09/17 20:21 (Zofran Inj) 4 mg Q6H PRN IV PUSH 05/09/17 17:15 Miscellaneous Information 1 Q361D XX 05/09/17 17:15 (Chlorhexidine 2% Cloth) 3 pack Taper DAILY@04 TOP 05/10/17 04:00 05/06/18 03:59 (Chlorhexidine 2% Cloth) 3 pack UNSCH PRN TOP 05/09/17 17:15 (Xopenex Neb) 1.25 mg Q2HR NEB PRN NEB 05/09/17 18:00 05/10/17 13:46 (Heparin Inj) 5,000 units UNSCH PRN IV PUSH 05/10/17 06:00 (Heparin Inj) 2,500 units UNSCH PRN IV PUSH 05/10/17 06:00 Heparin Sodium/ Dextrose 250 ml @ 7 mls/hr TITRATE PRN IV 05/10/17 00:00 05/10/17 16:11 (Lopressor) 75 mg Q6HR PO 05/10/17 12:00 (Pill Splitter) 1 ea UNSCH PRN OTHER 05/10/17 07:15 (SoluMEDROL INJ) 60 mg Q12H IV PUSH 05/10/17 11:00 05/10/17 11:00 (Lipitor) 40 mg DAILY PO 05/10/17 12:00 (Aspirin Chew) 81 mg DAILY CHEW 05/11/17 09:00 Midazolam HCl 100 ml @ 2 mls/hr TITRATE PRN IV 05/10/17 16:30 05/10/17 16:53 Norepinephrine Bitartrate 250 ml @ 75 mls/hr TITRATE PRN IV 05/10/17 17:45 05/10/17 17:35 (Xopenex Neb) 1.25 mg Q4HR NEB NEB 05/10/17 20:00 05/10/17 20:13 (Racepinephrine 2.25% Neb) 0.5 ml Q2HR NEB PRN NEB 05/10/17 17:45 Vital Signs / I&O Vital Signs Date Time Temp Pulse Resp B/P (MAP) Pulse Ox O2 Delivery O2 Flow Rate FiO2 05/10/17 20:31 99 100 05/10/17 20:13 95 80 05/10/17 18:15 101 05/10/17 17:12 99 100 05/10/17 17:12 105 05/10/17 16:40 100 05/10/17 16:39 111 05/10/17 16:05 99 100 05/10/17 16:00 130 05/10/17 15:56 120 05/10/17 15:13 99.2 113 24 138/75 (96) 95 05/10/17 15:11 94 Mechanical Ventilator 80 05/10/17 15:07 111 05/10/17 15:00 94 100 05/10/17 14:50 80 05/10/17 14:45 93 100 05/10/17 13:47 97 BiPAP 50 05/10/17 13:41 97 60 05/10/17 13:20 94 75 05/10/17 11:00 113 05/10/17 11:00 99.2 115 20 105/67 (80) 99 05/10/17 11:00 99 Nasal Cannula 4.00 05/10/17 07:40 96 Nasal Cannula 4.00 05/10/17 07:00 97 Nasal Cannula 4.00 05/10/17 07:00 98.3 106 18 105/68 (80) 97 05/10/17 07:00 106 05/10/17 04:00 108 05/10/17 04:00 96 Nasal Cannula 4.00 05/10/17 04:00 97 Nasal Cannula 4.00 05/10/17 04:00 99.0 108 20 99/73 (82) 97 05/10/17 01:45 96 Nasal Cannula 4.00 05/10/17 00:00 110 05/10/17 00:00 98 Nasal Cannula 4.00 05/10/17 00:00 110 18 101/72 (82) 98 I/O 05/10/17 05/10/17 05/10/17 05/11/17 05/11/17 05/11/17 07:00 15:00 23:00 07:00 15:00 23:00 Intake Total 520 ml 200 ml Output Total 300 ml 560 ml Balance 220 ml -360 ml Intake Oral 480 ml 0 ml IV Total 40 ml 200 ml Output Urine Total 300 ml 560 ml # Bowel Movements 0 Physical Exam GENERAL: Intubated, sedated SKIN: Warm and dry. HEAD: Atraumatic. Normocephalic. EYES: Pupils equal and round. No scleral icterus. No injection or drainage. ENT: No nasal bleeding or discharge. Mucous membranes pink and moist. NECK: Trachea midline. No JVD. CARDIOVASCULAR: Regular rate and rhythm. RESPIRATORY: No accessory muscle use. Decreased breath sounds bilaterally with rales GASTROINTESTINAL: Abdomen soft, non-tender, nondistended. Hepatic and splenic margins not palpable. MUSCULOSKELETAL: Extremities without clubbing, cyanosis, or edema. No obvious deformities. NEUROLOGICAL: Intubated and sedated Laboratory Laboratory Tests Test 05/10/17 03:41 05/10/17 08:04 05/10/17 15:45 05/10/17 15:48 White Blood Count 10.0 TH/MM3 Red Blood Count 4.75 MIL/MM3 Hemoglobin 14.9 GM/DL Hematocrit 44.9 % Mean Corpuscular Volume 94.7 FL Mean Corpuscular Hemoglobin 31.4 PG Mean Corpuscular Hemoglobin Concent 33.2 % Red Cell Distribution Width 12.6 % Platelet Count 345 TH/MM3 Mean Platelet Volume 9.7 FL Hematology Comments Blood Urea Nitrogen 22 MG/DL Creatinine 1.17 MG/DL Random Glucose 133 MG/DL Calcium Level 9.1 MG/DL Sodium Level 142 MEQ/L Potassium Level 4.1 MEQ/L Chloride Level 104 MEQ/L Carbon Dioxide Level 24.4 MEQ/L Anion Gap 14 MEQ/L Estimat Glomerular Filtration Rate 59 ML/MIN Total Creatine Kinase 319 U/L 211 U/L Creatine Kinase MB 13.8 NG/ML 5.9 NG/ML Creatine Kinase MB % 4.3 % 2.8 % Troponin I 27.00 NG/ML 15.80 NG/ML Activated Partial Thromboplast Time 47.7 SEC 44.4 SEC Blood Gas Puncture Site SWAN BEREKET LINE Blood Gas Patient Temperature 98.6 Venous Blood pH 7.07 Venous Blood Partial Pressure CO2 102 mmHg Venous Blood Partial Pressure O2 54 mmHg Venous Blood HCO3 28 mmol/L Venous Blood Oxygen Saturation 67 % Venous Blood Oxygen Content 12.5 Vol % Venous Blood Base Excess -1.0 mmol/L Oxygen Delivery Device VENTILATOR Blood Gas Ventilator Setting PRVC16/475/0.8/+8 Blood Gas Inspired Oxygen 100 % Test 05/10/17 17:24 Blood Gas Puncture Site ART LINE Blood Gas Patient Temperature 98.6 Blood Gas HCO3 22 mmol/L Blood Gas Base Excess -2.5 mmol/L Blood Gas Oxygen Saturation 98 % Arterial Blood pH 7.33 Arterial Blood Partial Pressure CO2 43 mmHg Arterial Blood Partial Pressure O2 335 mmHg Arterial Blood Oxygen Content 19.0 Vol % Arterial Blood Carboxyhemoglobin 0.5 % Arterial Blood Methemoglobin 1.2 % Blood Gas Hemoglobin 13.2 G/DL Oxygen Delivery Device VENTILATOR Blood Gas Ventilator Setting PRVC/AC Blood Gas Inspired Oxygen 100 % Imaging Last 24 hours Impressions Chest X-Ray 05/10/17 0000 Signed Impressions: Service Date/Time: April 15:49 - CONCLUSION: 1. The endotracheal tube and right-sided central line are in good position. 2. No pneumothorax. Roberto Skelton MD Assessment and Plan Problem List: (1) NSTEMI (non-ST elevated myocardial infarction) ICD Codes: I21.4 - Non-ST elevation (NSTEMI) myocardial infarction (2) Multi-vessel coronary artery stenosis ICD Codes: I25.10 - Atherosclerotic heart disease of [place] coronary artery without angina pectoris (3) Cardiogenic shock ICD Codes: R57.0 - Cardiogenic shock (4) SVT (supraventricular tachycardia) ICD Codes: I47.1 - Supraventricular tachycardia Assessment and Plan 1) Heparin drip 2) IABP placed, 1:1 3) Attempting to transfer to [place] to tertiary center 4) Discussed with Dr. Worrell from critical care as well as multiple times today 5) Greater than 60 mins of critical care time spent with the patient, discussing with other consultants and the patient's Wai Guido DO May 10, 2017 23:36
[2017-05-11] VITALS (11 sets, daily range): BP systolic 70–148; BP diastolic 46–77; PULSE 97–103; RESP 16; TEMP 98.4–98.8; O2SAT 97–99
[2017-05-11] MEDS: CHLORHEXIDINE GLUCONATE 2 % 1 PACK (2 CLOTHS) TOP SCH (00:58)
[2017-05-11] MEDS: NOREPINEPHRINE 4 MG/D5W 250 ML IV PRN ×4 (01:00→12:30)
[2017-05-11 01:23] LABS: TROPONIN I 9.85 NG/ML (0.02-0.05)
[2017-05-11] MEDS: methylPREDNISolone SOD SUCC 125 MG/2 ML VIAL IV PUSH SCH ×2 (01:23→10:32)
[2017-05-11] MEDS: INSULIN NovoLIN REGULAR SUPPLEMENTAL SCALE SQ SCH ×3 (01:23→12:00)
--- NOTE | 2017-05-11 02:03 | MB ---
cc: GuidoWai Jeff BRODERICK DATE: 05/10/2017 REASON FOR CONSULTATION: NSTEMI, tachycardia, acute systolic heart failure. HISTORY OF PRESENT ILLNESS: Suzanna Arndt is a pleasant 51-year-old female who presented to [facility] Emergency Room on 05/09/2017 due to shortness of breath. She states that over the past 2 weeks she started noticing that it was very difficult to walk from the parking garage to her desk (approximately 300 yards) due to shortness of breath. She also noticed over the same time period that she needed additional pills to sleep at night and has had worsening orthopnea. She blames her shortness of breath on her asthma, but it got so severe that she presented to [facility] Emergency Room. She was seen by Dr. Welch from the Critical Care Department. While being admitted she went into a tachycardia with heart rate of 170 was given adenosine and finally broke to sinus rhythm/sinus tachycardia. I was asked to see her due to her tachycardia, NSTEMI as well as acute systolic heart failure. In discussing with Dr. Welch he did a bedside echo and overall her ejection fraction appears to be around 10%. PAST MEDICAL HISTORY: 1. Asthma. 2. Diabetes. 3. Hypertension. PAST SURGICAL HISTORY: Denies. ALLERGIES: 1. ALBUTEROL. 2. PENICILLIN. 3. STRAWBERRIES. MEDICATIONS: 1. Xopenex. 2. Norvasc 5 mg daily. 3. Breo Ellipta 1 puff daily. 4. Metformin 500 mg b.i.d. FAMILY HISTORY: Father of congestive heart failure in his 70s. SOCIAL HISTORY: The patient denies tobacco, alcohol or drug abuse. REVIEW OF SYSTEMS: Fourteen systems were reviewed including osteopathic. Pertinent positives and negatives above, otherwise negative. PHYSICAL EXAMINATION: VITAL SIGNS: Temperature 98.3, heart rate 106, blood pressure 105/60, respirations 18, pulse oximetry 97% on 4 liters. GENERAL: The patient appears relatively well with mild shortness of breath. Alert, awake and oriented x 3. HEENT: Extraocular muscles intact. Mucous membranes moist. NECK: Supple with JVD to the mid portion of her neck. Carotid upstroke is brisk in nature. HEART: Tachycardic. Positive first and second heart sounds with no noted murmurs, gallops or rubs. LUNGS: Decreased breath sounds bilaterally with coarse rales noted at the bases. ABDOMEN: Soft, nontender, nondistended. No organomegaly noted. EXTREMITIES: Show no clubbing, cyanosis or edema. Femoral and distal pulses are intact bilaterally. NEUROLOGIC: No focal deficits. SKIN: Warm, dry and intact. OSTEOPATHIC: No kyphoscoliosis, lordosis or paraspinal tender points. LABORATORY DATA: Hemoglobin 14.9, hematocrit 44.9, platelets 345. Potassium 4.1, BUN 22, creatinine 1.17. Troponin 27, triglycerides 156. Total cholesterol 220, LDL 137, HDL 51.4. Electrocardiogram (05/09/2017 at 1638) sinus tachycardia, poor R-wave progression, nonspecific ST-T wave changes. IMPRESSIONS: 1. Non-ST elevation myocardial infarction. 2. New acute systolic congestive heart failure. 3. New onset cardiomyopathy of unknown etiology, possibly tachyarrhythmia induced. 4. Acute hypoxemia. 5. Supraventricular tachycardia with heart rates of 170, possibly atrial tachycardia with a 2:1 block versus atrial flutter. RECOMMENDATIONS: 1. Ms. Arndt presented with shortness of breath and was found to have a new cardiomyopathy with acute systolic heart failure. 2. She has since been diuresed and we should continue this. 3. She will be recommended right and left heart catheterization to further evaluate her overall pressures as well as rule out ischemic cardiomyopathy. 4. We will also send for other lab work to further determine her cardiomyopathy. 5. She will continue on a heparin drip. 6. We will plan to get a formal echo to evaluate both her LV as well as the RV, her cardiac structure and overall valvulopathies. 7. Further recommendations will be made after coronary visualization. Thank you for allowing me to see Suzanna Arndt. If there any questions, please do not hesitate to call. Wai Guido, VGP/rt , 01:31 AM , 02:02 AM
--- NOTE | 2017-05-11 02:12 | MA ---
cc: Wai Guido DO DATE: 05/10/2017 PROCEDURE: Intraaortic balloon pump placement, moderate sedation 60 minutes. PREPROCEDURE DIAGNOSES: Cardiogenic shock, multivessel coronary artery disease, acute systolic heart failure, new ischemic cardiomyopathy. POSTPROCEDURE DIAGNOSIS: Cardiogenic shock with intraaortic balloon pump placement. MEDICATIONS: Versed 6 mg. CONTRAST USED: 5 mL FLUOROSCOPY: 1.0 minutes. MODERATE SEDATION: 60 minutes. ESTIMATED BLOOD LOSS: 10 mL PROCEDURAL SUMMARY: Suzanna Arndt is a pleasant 51-year-old female who was cathed earlier in the day and was found to have multivessel coronary artery disease as well as acute systolic heart failure with a new ischemic cardiomyopathy. She has since been in the CVICU and needed to be intubated. The case was discussed extensively with Dr. Worrell and after discussing with Dr. Ren it was determined that she needed to be transferred to a tertiary center for consideration of bypass, LVAD or cardiac transplant evaluation. Due to her cardiogenic shock, it was felt necessary to place an intraaortic balloon pump to further help to supply perfusion to her coronary anatomy. Risks, benefits and alternatives were discussed with her and he consented for the procedure as the patient is currently intubated and unable to give consent. She was brought to the lab and prepped in the usual sterile fashion. The patient was sedated but still moving around immensely and was given multiple doses of 2 mg of Versed to try to Sedate her. At this point, I discussed with Dr. Worrell and he came to evaluate the patient and paralyzed her due to her safety during the procedure. Right femoral artery was accessed using a modified Seldinger technique with a micropuncture needle and placement of a 6-Algerian dilator and then an 8-Algerian sheath. This was easily aspirated and flushed. A 40 mL intraaortic balloon pump was then placed. It was placed on 1:1 augmentation. Overall, augment pressure was 110. Intraaortic balloon pump was sutured in place. The patient was transferred back to the CVICU in a critical state. IMPRESSIONS: 1. Cardiogenic shock, status post intraaortic balloon pump placement. 2. Multivessel coronary artery disease with new onset ischemic cardiomyopathy. 3. Acute systolic heart failure with an ejection fraction of around 10%. 4. Non-ST elevation myocardial infarction. 5. Pulmonary hypertension, type 2 due to elevated left-sided filling pressures. RECOMMENDATIONS: 1. Ms. Arndt had an intraaortic balloon pump placed due to cardiogenic shock. This will continue on a 1:1 augmentation. Augmentation pressures upon leaving the room were 110. 2. She will continue on a heparin drip. 3. She will be evaluated for transfer to a tertiary center for the possibility of high risk coronary artery bypass grafting, LVAD placement or possible transplant evaluation. 4. Further recommendations will be made based on the hospital course. Thank you for allowing me to see Suzanna Arndt. If there are any questions, please do not hesitate to call. Wai Guido DO VGP/rt , 01:49 AM , 02:11 AM
[2017-05-11] MEDS: RESP: LEVALBUTEROL HYDROCHLORIDE 1.25 MG/3 ML NEB (SCH) NEB ×3 (03:18→11:04)
[2017-05-11] MEDS: MIDAZOLAM 100 MG/NS 100 ML DRIP Premix IV PRN ×2 (05:00→14:00)
[2017-05-11 05:05] LABS: AUTOMATED NEUTROPHIL # 12.2 TH/MM3 (1.8-7.7); BASOPHIL % 0.2 % (0.0-2.0); HEMATOCRIT 38.8 % (35.0-46.0); HEMOGLOBIN 12.6 GM/DL (11.6-15.3); LYMPH % 3.9 % (9.0-44.0); LYMPHOCYTE # 0.5 TH/MM3 (1.0-4.8); MEAN CELL VOLUME 93.6 FL (80.0-100.0); MEAN CORPUSCULAR HEMOGLOBIN 30.5 PG (27.0-34.0); MEAN CORPUSCULAR HGB CONC 32.6 % (32.0-36.0); MONO % 5.2 % (0.0-8.0); MONOCYTE # 0.7 TH/MM3 (0-0.9); NEUT % 90.7 % (16.0-70.0); PLATELET COUNT 289 TH/MM3 (150-450); RED BLOOD COUNT 4.14 MIL/MM3 (4.00-5.30); RED CELL DISTRIBUTION WIDTH 12.7 % (11.6-17.2); WHITE BLOOD COUNT 13.5 TH/MM3 (4.0-11.0)
[2017-05-11 05:18] LABS: INTERNATIONAL NORMALIZED RATIO 1.3 RATIO
[2017-05-11 05:27] LABS: CALCIUM 7.5 MG/DL (8.5-10.1); CREATININE 1.36 MG/DL (0.50-1.00); MAGNESIUM 2.9 MG/DL (1.5-2.5); PHOSPHORUS 3.6 MG/DL (2.5-4.9)
[2017-05-11] MEDS: METOPROLOL TARTRATE 50 MG TAB PO SCH ×3 (05:53→12:00)
[2017-05-11] MEDS ORDERED: HEPARIN-D5W 25,000 U/250 ML 250 ML IV SCH (06:00)
--- NOTE | 2017-05-11 08:20 | MA ---
cc: Wai Guido DO DATE: 05/10/2017 PROCEDURE: Left heart catheterization, right heart catheterization, coronary angiogram, ultrasound-guided access. PREOPERATIVE DIAGNOSIS: [id number]-KN-[id number] myocardial infarction, acute systolic heart failure with an ejection fraction of around 10%, new cardiomyopathy of unknown cause. POSTOPERATIVE DIAGNOSIS: Multivessel coronary artery disease, [id number]-JA-[id number] myocardial infarction, ischemic cardiomyopathy. MEDICATIONS: Fentanyl 50 mcg, nitro 200 mcg, verapamil 2.5 mg, heparin 2400 units, Lasix 40 mg. CONTRAST USED: 35 mL FLUOROSCOPY: 5.9 minutes. MODERATE SEDATION: 0 minutes. ESTIMATED BLOOD LOSS: 10 mL. PROCEDURAL SUMMARY: Suzanna Arndt is a pleasant 51-year-old female who presented to [facility] Emergency Room due to shortness of breath. She was found to have a new cardiomyopathy with an ejection fraction of 10% as well as an elevated troponin, and because of this, she was recommended cardiac catheterization. Risks, benefits and alternatives were explained to her and she consented to such. She was brought to the lab and prepped in the usual sterile fashion. The right radial artery was accessed using a modified Seldinger technique and placement of a 5/6 Bangladeshi slender sheath. This was easily aspirated and flushed. Previous IV was exchanged out for a sheath, but was unable to be used, as a [place]-Brad catheter would not advance up her brachial vein. Ultrasound guidance was used to find another brachial vein and placement of a 5/6 Bangl[place]hi slender sheath. Once again, the brachial vein was unable to be used, as [place]-Brad catheter was unable to be advanced. Right femoral vein was accessed using a modified Seldinger technique and ultrasound guidance and placement of a 5.5 Bangladeshi sheath. Femoral and radial sheaths were easily aspirated and flushed. A JR4 was advanced to the ascending aorta and across the aortic valve for measurement of left ventricular pressure. This was pulled back across the aortic valve, showing no significant gradient of aortic stenosis. JR4 was used for selective angiography of the right coronary artery system. This was exchanged out for a JL3.5, which was used for selective angiography of the left coronary artery system. JL3.5 was removed over a J-wire. Right femoral vein was accessed using a modified Seldinger technique with ultrasound guidance and placement of a 5.5 Bangladeshi sheath. This was easily aspirated and flushed. A [place]-Brad catheter was advanced to the wedge position and oxygen saturations as well as pressures were done on a standard pullback throughout the heart. [place]-Brad catheter was removed. The patient was having difficulty with shortness of breath and felt she needed to sit up. An ACT was drawn and was 190, and I felt that the femoral sheath needed to be removed before damage could be done to the femoral vein, as she needed to sit up, and so the femoral sheath as well as both brachial sheaths were removed. A radial band was placed over the arteriotomy site for hemostasis. The patient was given a dose of IV Lasix. I did call Dr. Welch and he came down to evaluate her, and we agreed that she needed to be placed on BiPAP immediately upon arrival back in the CV ICU. The patient left the [facility] in a guarded state. FINDINGS: Left main: Normal size vessel with adequate reflux. It bifurcates into an LAD and circumflex. LAD: Normal size vessel with a 90% lesion in the mid portion. After this, the vessel is 100% occluded. It gives off 3 small diagonals with diffuse disease throughout. Left circumflex: Overall small vessel. There is an [id number]-rt-[id number] stenosis of 90%. Circumflex gives off 1 obtuse marginal, which is overall small. RCA: Small to moderate sized vessel with multiple lesions of 90% in the proximal, 70% in the mid, and 80% distally. It gives off a PDA and 2 PLVs which are overall small, with mild luminal irregularities. HEMODYNAMICS: RA 20. RV 66/22, RVEDP 22. PA 68/47, mean PA 55. Wedge 52. LVEDP 40. IMPRESSIONS: 1. Acute systolic heart failure with an ejection fraction of around 10%. 2. New onset ischemic cardiomyopathy. 3. Opv-HT-fsbxfmobz myocardial infarction. 4. Pulmonary hypertension (type 2 due to elevated left-sided filling pressures). 5. Elevated LVEDP. RECOMMENDATIONS: 1. Ms. Arndt appears to have multivessel disease and will be evaluated by CT surgery for consideration of coronary artery bypass grafting. 2. Overall, my concern is with her acute systolic heart failure as well as the significance of her disease, that she should be considered for transfer to a tertiary center, where she may need ____ or possible consideration of cardiac transplant. 3. She will be placed back on a heparin drip. 4. Upon arrival back to CV ICU, she will be placed on BiPAP, as she has respiratory insufficiency, and we will continue to attempt to diurese her to help her overall breathing. Further recommendations will be made based on the hospital course. Thank you for allowing me to see Suzanna Arndt. If there are any questions, please do not hesitate to call. DO TRIXIE Lan/JANAY , 01:42 AM , 02:20 AM
[2017-05-11] MEDS: ATORVASTATIN 40 MG TAB PO SCH (08:33)
[2017-05-11] MEDS: FAMOTIDINE 20 MG TAB PO SCH (08:33)
[2017-05-11] MEDS ORDERED: ASPIRIN 81 MG CHEW TAB CHEW SCH (09:00)
--- NOTE | 2017-05-11 11:05 | PD.CARD.PN ---
Subjective Subjective Remarks Stable overnight Decent urine outpt Levophed decreasing, 15mcg/min IABP 1:1 with augment pressure of 120 Objective Medications Current Medications Medications (Trade) Dose Ordered Sig/Teresa Route Start Time Stop Time Status Last Admin Potassium Chloride 100 ml @ 50 mls/hr Q2H PRN IV 05/09/17 17:15 Potassium Chloride 100 ml @ 50 mls/hr Q2H PRN IV 05/09/17 17:15 (K-Lyte Cl Eff) 50 meq UNSCH PRN PO 05/09/17 17:15 Potassium Chloride 100 ml @ 25 mls/hr UNSCH PRN IV 05/09/17 17:15 Potassium Chloride 100 ml @ 50 mls/hr Q2H PRN IV 05/09/17 17:15 Magnesium Sulfate 4 gm/Sodium Chloride 100 ml @ 50 mls/hr UNSCH PRN IV 05/09/17 17:15 (Mag-Ox) 800 mg UNSCH PRN PO 05/09/17 17:15 Magnesium Sulfate 2 gm/Sodium Chloride 100 ml @ 50 mls/hr UNSCH PRN IV 05/09/17 17:15 (K-Phos) 2,000 mg Q4H PRN PO 05/09/17 17:15 Sodium Phosphate 30 mmol/Sodium Chloride 250 ml @ 42 mls/hr UNSCH PRN IV 05/09/17 17:15 (K-Phos) 2,000 mg UNSCH PRN PO/TUBE 05/09/17 17:15 Potassium Phosphate 30 mmol/ Sodium Chloride 260 ml @ 42 mls/hr UNSCH PRN IV 05/09/17 17:15 (D50w (Vial) Inj) 25 ml UNSCH PRN IV PUSH 05/09/17 17:15 (NovoLIN R SUPPLEMENTAL SCALE) 1 Q6HR SQ 05/09/17 18:00 05/11/17 06:00 (Pepcid) 20 mg Q12HR PO 05/09/17 21:00 05/11/17 08:33 (Zofran Inj) 4 mg Q6H PRN IV PUSH 05/09/17 17:15 Miscellaneous Information 1 Q361D XX 05/09/17 17:15 (Chlorhexidine 2% Cloth) 3 pack Taper DAILY@04 TOP 05/10/17 04:00 05/06/18 03:59 05/11/17 00:58 (Chlorhexidine 2% Cloth) 3 pack UNSCH PRN TOP 05/09/17 17:15 (Xopenex Neb) 1.25 mg Q2HR NEB PRN NEB 05/09/17 18:00 05/10/17 13:46 (Lopressor) 75 mg Q6HR PO 05/10/17 12:00 (Pill Splitter) 1 ea UNSCH PRN OTHER 05/10/17 07:15 (SoluMEDROL INJ) 60 mg Q12H IV PUSH 05/10/17 11:00 05/11/17 10:32 (Lipitor) 40 mg DAILY PO 05/10/17 12:00 05/11/17 08:33 (Aspirin Chew) 81 mg DAILY CHEW 05/11/17 09:00 05/11/17 08:33 Midazolam HCl 100 ml @ 2 mls/hr TITRATE PRN IV 05/10/17 16:30 05/11/17 05:00 Norepinephrine Bitartrate 250 ml @ 75 mls/hr TITRATE PRN IV 05/10/17 17:45 05/11/17 08:16 (Xopenex Neb) 1.25 mg Q4HR NEB NEB 05/10/17 20:00 05/11/17 03:18 (Racepinephrine 2.25% Neb) 0.5 ml Q2HR NEB PRN NEB 05/10/17 17:45 Heparin Sodium/ Dextrose 250 ml @ 10 mls/hr Q24H IV 05/11/17 06:00 Vital Signs / I&O Vital Signs Date Time Temp Pulse Resp B/P (MAP) Pulse Ox O2 Delivery O2 Flow Rate FiO2 05/11/17 11:01 98.4 99 16 123/56 (78) 99 05/11/17 11:01 05/11/17 10:06 05/11/17 09:02 05/11/17 08:12 05/11/17 08:10 50 05/11/17 07:47 05/11/17 07:45 99 05/11/17 07:29 97 Mechanical Ventilator 40 05/11/17 07:27 98.6 97 16 148/50 (82) 97 05/11/17 07:23 98 40 05/11/17 05:00 97 Mechanical Ventilator 40 05/11/17 05:00 40 05/11/17 04:30 103 101/47 05/11/17 04:00 98 Mechanical Ventilator 50 05/11/17 04:00 50 05/11/17 04:00 102 05/11/17 04:00 74/47 (76) 05/11/17 04:00 98.7 103 16 117/77 (90) 98 131/51 (77) 82/55 (64) 05/11/17 03:59 98 40 05/11/17 03:00 98 Mechanical Ventilator 60 05/11/17 03:00 98 60 05/11/17 03:00 60 05/11/17 01:00 97 91/44 05/11/17 00:00 70 05/11/17 00:00 98.8 101 16 105/46 (65) 98 70/49 (56) 05/11/17 00:00 100 05/11/17 00:00 98 Mechanical Ventilator 70 05/10/17 23:50 98 70 05/10/17 23:00 101 105/46 (65) 05/10/17 23:00 99 Mechanical Ventilator 80 05/10/17 23:00 77/51 (80) 05/10/17 22:30 77 110/62 05/10/17 20:31 99 100 05/10/17 20:13 95 80 05/10/17 20:00 100 05/10/17 20:00 80 05/10/17 20:00 99 Mechanical Ventilator 80 05/10/17 20:00 99.9 101 16 117/65 (82) 99 05/10/17 18:15 101 05/10/17 17:12 99 100 05/10/17 17:12 105 05/10/17 16:40 100 05/10/17 16:39 111 05/10/17 16:05 99 100 05/10/17 16:00 130 05/10/17 15:56 120 05/10/17 15:13 99.2 113 24 138/75 (96) 95 05/10/17 15:11 94 Mechanical Ventilator 80 05/10/17 15:07 111 05/10/17 15:00 94 100 05/10/17 14:50 80 05/10/17 14:45 93 100 05/10/17 13:47 97 BiPAP 50 05/10/17 13:41 97 60 05/10/17 13:20 94 75 I/O 05/10/17 05/10/17 05/10/17 05/11/17 05/11/17 05/11/17 07:00 15:00 23:00 07:00 15:00 23:00 Intake Total 520 ml 450 ml 860 ml 350 ml Output Total 300 ml 560 ml 1180 ml Balance 220 ml -110 ml -320 ml 350 ml Intake Oral 480 ml 0 ml 0 ml IV Total 40 ml 450 ml 720 ml 350 ml Other 140 ml Output Urine Total 300 ml 560 ml 1080 ml Gastric Drainage Total 100 ml # Bowel Movements 0 0 Physical Exam GENERAL: Intubated, sedated SKIN: Warm and dry. HEAD: Atraumatic. Normocephalic. EYES: Pupils equal and round. No scleral icterus. No injection or drainage. ENT: No nasal bleeding or discharge. Mucous membranes pink and moist. NECK: Trachea midline. No JVD. CARDIOVASCULAR: Regular rate and rhythm. RESPIRATORY: No accessory muscle use. Decreased breath sounds bilaterally with rales GASTROINTESTINAL: Abdomen soft, non-tender, nondistended. Hepatic and splenic margins not palpable. MUSCULOSKELETAL: Extremities without clubbing, cyanosis, or edema. No obvious deformities. Right femoral with IABP, distal pulses intact NEUROLOGICAL: Intubated and sedated Laboratory Laboratory Tests Test 05/10/17 15:45 05/10/17 15:48 05/10/17 17:24 05/11/17 00:22 Blood Gas Puncture Site SWAN BEREKET LINE ART LINE Blood Gas Patient Temperature 98.6 98.6 Venous Blood pH 7.07 Venous Blood Partial Pressure CO2 102 mmHg Venous Blood Partial Pressure O2 54 mmHg Venous Blood HCO3 28 mmol/L Venous Blood Oxygen Saturation 67 % Venous Blood Oxygen Content 12.5 Vol % Venous Blood Base Excess -1.0 mmol/L Oxygen Delivery Device VENTILATOR VENTILATOR Blood Gas Ventilator Setting PRVC16/475/0.8/+8 PRVC/AC Blood Gas Inspired Oxygen 100 % 100 % Activated Partial Thromboplast Time 44.4 SEC 69.3 SEC Total Creatine Kinase 211 U/L 164 U/L Creatine Kinase MB 5.9 NG/ML 3.8 NG/ML Creatine Kinase MB % 2.8 % Troponin I 15.80 NG/ML 9.85 NG/ML Blood Gas HCO3 22 mmol/L Blood Gas Base Excess -2.5 mmol/L Blood Gas Oxygen Saturation 98 % Arterial Blood pH 7.33 Arterial Blood Partial Pressure CO2 43 mmHg Arterial Blood Partial Pressure O2 335 mmHg Arterial Blood Oxygen Content 19.0 Vol % Arterial Blood Carboxyhemoglobin 0.5 % Arterial Blood Methemoglobin 1.2 % Blood Gas Hemoglobin 13.2 G/DL Test 05/11/17 03:30 05/11/17 04:40 Blood Gas Puncture Site ART LINE Blood Gas Patient Temperature 98.6 Blood Gas HCO3 22 mmol/L Blood Gas Base Excess -2.5 mmol/L Blood Gas Oxygen Saturation 98 % Arterial Blood pH 7.41 Arterial Blood Partial Pressure CO2 35 mmHg Arterial Blood Partial Pressure O2 268 mmHg Arterial Blood Oxygen Content 16.0 Vol % Arterial Blood Carboxyhemoglobin 0.6 % Arterial Blood Methemoglobin 1.2 % Blood Gas Hemoglobin 11.2 G/DL Oxygen Delivery Device VENTILATOR Blood Gas Ventilator Setting PRVC Blood Gas Inspired Oxygen 60 % White Blood Count 13.5 TH/MM3 Red Blood Count 4.14 MIL/MM3 Hemoglobin 12.6 GM/DL Hematocrit 38.8 % Mean Corpuscular Volume 93.6 FL Mean Corpuscular Hemoglobin 30.5 PG Mean Corpuscular Hemoglobin Concent 32.6 % Red Cell Distribution Width 12.7 % Platelet Count 289 TH/MM3 Mean Platelet Volume 9.0 FL Neutrophils (%) (Auto) 90.7 % Lymphocytes (%) (Auto) 3.9 % Monocytes (%) (Auto) 5.2 % Eosinophils (%) (Auto) 0.0 % Basophils (%) (Auto) 0.2 % Neutrophils # (Auto) 12.2 TH/MM3 Lymphocytes # (Auto) 0.5 TH/MM3 Monocytes # (Auto) 0.7 TH/MM3 Eosinophils # (Auto) 0.0 TH/MM3 Basophils # (Auto) 0.0 TH/MM3 CBC Comment DIFF FINAL Differential Comment Prothrombin Time 13.0 SEC Prothromb Time International Ratio 1.3 RATIO Activated Partial Thromboplast Time 113.2 SEC Blood Urea Nitrogen 32 MG/DL Creatinine 1.36 MG/DL Random Glucose 397 MG/DL Calcium Level 7.5 MG/DL Phosphorus Level 3.6 MG/DL Magnesium Level 2.9 MG/DL Sodium Level 135 MEQ/L Potassium Level 4.0 MEQ/L Chloride Level 101 MEQ/L Carbon Dioxide Level 26.0 MEQ/L Anion Gap 8 MEQ/L Estimat Glomerular Filtration Rate 49 ML/MIN Assessment and Plan Problem List: (1) NSTEMI (non-ST elevated myocardial infarction) ICD Codes: I21.4 - Non-ST elevation (NSTEMI) myocardial infarction (2) Multi-vessel coronary artery stenosis ICD Codes: I25.10 - Atherosclerotic heart disease of [place] coronary artery without angina pectoris (3) Cardiogenic shock ICD Codes: R57.0 - Cardiogenic shock (4) SVT (supraventricular tachycardia) ICD Codes: I47.1 - Supraventricular tachycardia Assessment and Plan 1) Heparin drip 2) IABP placed, 1:1 augmenting well 3) Attempting to transfer to [place] to tertiary center 4) Discussed with Dr. Worrell from critical care as well as 5) Wean Levophed as possible Wai Guido DO May 11, 2017 11:05
--- NOTE | 2017-05-11 11:41 | HHI.CCPN ---
Subjective Remarks/Hospital Course Hospital Course: This 51-year-old female with a past medical history of poorly controlled asthma who presents with a few days of acute worsening shortness of breath. She states that approximately 2 weeks ago, she started noticing that it was more difficult to walk from the parking garage to her desk (approximately 300 yds). She also has noticed over the same time period that she needs additional pillows to sleep at night and is having worsening dyspnea. She has poorly controlled Asthma, and usually uses her Xopenex inhaler once or twice at night, and at least once during the daytime. She has been intubated for asthma in the past, approximately 17 years ago. She denies any chest pain. She is a nonsmoker and has no family history of coronary artery disease. Her father did of CHF (unknown type) in his 70s. In the emergency department, she was hypoxic requiring a 50% ventimask. She has a Cr 1.3 (reportedly normal baseline), She has an elevated BNP at 1300 and a CXR with evidence of cardiomegaly. I performed bedside critical care ultrasonography which demonstrated a severely depressed LV systolic function globally, decompressed RV with preserved RV function, collapsable IVC, no pericardial effusion. ROS is positive for tachycardia (has had palpitations x 48h and every hospital admission in last 2 years has HR > 140). denies fever, chills or recent colds/ flulike symptoms in last 6 months. denies nausea, vomiting, diarrhea, constipation, abdominal pain. denies lower extremity swelling. denies fatigue. denies agitation, hot/cold intolerance. Remainder of ROS negative. Subjective: 05/10: severe dyspnea remains. trop overnight le significantly, most recently 27 and uptrending. started on heparin drip for rapidly rising troponins. NPO for LHC/RHC this AM. started steroids for presumed co-asthma exacerbation, though dyspnea appears cardiac in origin. ROS unchanged from yesterday. no new symptoms. no chest pain. 05/11: remains critically ill. IABP placed overnight. remains intubated, sedated , in cardiogenic shock. RHC: art 130/80 (99), augmented mean 119, HR 111, RAP 10, PA 35/20 (25), PCWP 19. CO/CI 4/2.4. SVR 1799, PVR 1.5 james. Objective Vital Signs Date Time Temp Pulse Resp B/P (MAP) Pulse Ox O2 Delivery O2 Flow Rate FiO2 05/11/17 11:05 99 40 05/11/17 11:02 99 05/11/17 11:02 Mechanical Ventilator 05/11/17 11:01 98.4 16 123/56 (78) 05/10/17 11:00 4.00 Intake and Output 05/11/17 05/11/17 05/12/17 08:00 16:00 00:00 Intake Total 960 ml 250 ml Output Total 1180 ml Balance -220 ml 250 ml Result Diagram: 05/11/17 0440 05/11/17 0440 Other Results Laboratory Tests Test 05/10/17 15:45 05/10/17 17:24 05/11/17 03:30 Blood Gas Puncture Site SWAN BEREKET LINE ART LINE ART LINE Blood Gas Patient Temperature 98.6 98.6 98.6 Venous Blood pH 7.07 (7.360-7.400) Venous Blood Partial Pressure CO2 102 mmHg (44-48) Venous Blood Partial Pressure O2 54 mmHg (35-40) Venous Blood HCO3 28 mmol/L (22-26) Venous Blood Oxygen Saturation 67 % (70-76) Venous Blood Oxygen Content 12.5 Vol % (9.0-17.0) Venous Blood Base Excess -1.0 mmol/L (-2-2) Oxygen Delivery Device VENTILATOR VENTILATOR VENTILATOR Blood Gas Ventilator Setting PRVC16/475/0.8/+8 PRVC/AC PRVC Blood Gas Inspired Oxygen 100 % 100 % 60 % Blood Gas HCO3 22 mmol/L (22-26) 22 mmol/L (22-26) Blood Gas Base Excess -2.5 mmol/L (-2-2) -2.5 mmol/L (-2-2) Blood Gas Oxygen Saturation 98 % (90-100) 98 % (90-100) Arterial Blood pH 7.33 (7.380-7.420) 7.41 (7.380-7.420) Arterial Blood Partial Pressure CO2 43 mmHg (38-42) 35 mmHg (38-42) Arterial Blood Partial Pressure O2 335 mmHg (61-120) 268 mmHg (61-120) Arterial Blood Oxygen Content 19.0 Vol % (12.0-20.0) 16.0 Vol % (12.0-20.0) Arterial Blood Carboxyhemoglobin 0.5 % (0-4) 0.6 % (0-4) Arterial Blood Methemoglobin 1.2 % (0-2) 1.2 % (0-2) Blood Gas Hemoglobin 13.2 G/DL (12.0-16.0) 11.2 G/DL (12.0-16.0) Imaging Last Impressions Chest X-Ray 05/09/17 1335 Signed Impressions: Service Date/Time: Tuesday, May 09, 2017 13:59 - CONCLUSION: Cardiomegaly without pulmonary vascular engorgement. Bright Welch Jr., MD Objective Remarks GENERAL: Middle-aged female, lying in bed, intubated, sedated. HEENT: Normocephalic. Atraumatic. Pupils equal, round, reactive, conjugate. Mucous membranes are moist NECK: Trachea is midline. right IJ introducer sheath with PAC in place, site c/ d/i. CHEST: intubated. + expiratory wheezes. fio2 40%. peak pressure 38, plateau 28. CARDIOVASCULAR: Tachycardic rate in the 110s. Appears regular rhythm. IABP 1:1 ABDOMEN: Soft, nontender, nondistended. No guarding. MUSCULOSKELETAL: Pulses 2+. No peripheral edema. extremities are warm and well- perfused. NEUROLOGICAL: RASS -3. intubated, sedated. briskly purposeful. A/P Assessment and Plan Assessment: This is a 51-year-old female with history of poorly controlled asthma who presents with worsening shortness of breath, dyspnea on exertion, orthopnea now found to have newly diagnosed severe ischemic cardiomyopathy and an EF ~10%. She decompensated yesterday into cardiogenic shock, now intubated, with IABP and PA catheter. She has been accepted at OSH for urgent transfer for work-up for high-risk CABG vs. mechanical support vs. consideration for transplant work-up. remains very critcially ill. continue IABP support and forced diuresis. remains very critically ill in decompensated cardiogenic shock. Active problems: Acute hypoxic and Hypercarbic respiratory failure Acute systolic CHF exacerbation Acute asthma exacerbation Cardiogenic Shock Severe ischemic cardiomyopathy EF 10% Type I NSTEMI Acute intravascular volume overload Plan: continue versed for RASS goal -2 wean fio2 for goal spo2 > 90% no SBT today as need for urgent transfer to OSH vent bundle, elevated hob, nebs. lopressor 75mg po q6h levophed for goal map > 65 mmHg and augmented mean > 90. continue IABP 1:1 continue PAC lasix for forced diuresis. statin heparin drip Consult cardiology: Dr. Guido SCDs heparin drip Pepcid right IJ cordis, swan 05/10 left radial art line 05/10 stone iabp 05/10 dispo: transfer to OSH when bed available. critical care time: 58 minutes, exclusive of separately billable procedures. Judd Worrell MD May 11, 2017 11:41
[2017-05-11] MEDS ORDERED: FUROSEMIDE 40 MG/4 ML VIAL IV PUSH SCH (11:45)
--- NOTE | 2017-05-11 14:45 | MB ---
cc: Rita Jimkatie WERNER DATE: 05/11/2017 HISTORY OF PRESENT ILLNESS: A 51-year-old female presented to [place] emergency room, 05/09/2017, secondary to shortness of breath, is experiencing increasing shortness of breath over the past couple of weeks. It was difficult for her to walk from the parking garage to her desk. 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 She has a longstanding history of asthma and thought that it was getting severe, so she presented to the ER. She was seen by Dr. Worrell in the emergency department and while being admitted, she went into a tachycardic rhythm with a rate of 170, was given adenosine, finally broke but showed sinus tachycardia and sinus rhythm. She also had an elevated troponin, the highest of 27, was ruled in for a non-STEMI. Has apparently been treated for her asthma for many years. Incidentally, an initial bedside echo showed an overall ejection fraction about 10%. The patient then had a full echocardiogram yesterday, which showed EF of 20%, global hypokinesis, moderately dilated left ventricle, moderate MR, trace tricuspid regurgitation. No aortic stenosis or regurgitation. She was then taken to the catheterization lab where the EF was noted at 10% with a proximal LAD of 70%, mid distal 100%, diagonal 70%, the circumflex 90%, the OM 50%, the RCA 90%. RV pressure 66/22 with an EDP of 22, PA pressure 68/47 with a mean of 55, wedge pressure very high at 52. We were consulted to evaluate and assess for possible transfer to a tertiary center to be evaluated for ventricular assist device/transplant center. The cardiac film has been evaluated by Dr. Glenny Ren in addition to the evaluation of the echocardiogram, and it was felt that she would best be served by transferring to, again, a tertiary center. PAST MEDICAL HISTORY: Includes asthma, diabetes, hypertension. She has had a . She has 1 child. ALLERGIES: INCLUDE ALBUTEROL, PENICILLIN, STRAWBERRIES. HOME MEDICATIONS: Include Xopenex, Norvasc, Breo Ellipta, metformin. FAMILY HISTORY: Father from congestive heart failure. SOCIAL HISTORY: No tobacco, alcohol or drug abuse. The patient incidentally is also a Jehovah Witness. REVIEW OF SYSTEMS: Unable to obtain at this time. Incidentally, the patient developed respiratory failure following the heart catheterization. She was incidentally intubated for airway protection and also an intraaortic balloon pump was placed into the right groin for assist device. The patient now has an intraaortic balloon pump with a 1:1 augmentation of 114 at this time. Again, the review of systems are unobtainable. All the information was obtained from the . PHYSICAL EXAMINATION: VITAL SIGNS: At the time, blood pressure 120/60, heart rate of 90, temperature 98.4, FiO2 on the ventilator is 40%. GENERAL: The patient is currently sedated, on Versed, and she is also on a heparin drip, orally intubated. HEENT: Pupils are approximately 2-3 mm, midline, sluggish. NECK: Supple, positive for JVD. HEART: Sounds S1, S2, slightly tachycardic. No notable rubs, murmurs, or gallops. LUNGS: Diminished in the bases with few coarse breath sounds, some expiratory wheeze. ABDOMEN: Soft, nontender. No masses or organomegaly. EXTREMITIES: No cyanosis, clubbing or edema. NEUROLOGIC: Again, the patient is sedated on the ventilator with a -2. The patient remains also on Julien-Synephrine drip. LABORATORY DATA: Shows hemoglobin 12, hematocrit of 38. White cell count of 13, platelet count of 289. Sodium 135, potassium 4.0, BUN of 32, creatinine 1.36, glucose 397. However, she is on steroids. Hemoglobin A1c 7.6. Iron level of 31%, sat of 8. Triglycerides 156, cholesterol 220, LDL 137. Troponin elevated as high as 27. INR 1.3. Urinalysis was unremarkable. MRSA screen negative. JUVENTINO screen pending. HIV is nonreactive. Coxsackie pending. Chest x-ray following intubation, was in good placement, right central line in good position. No pneumothorax. IMPRESSION: This, again, is a 51-year-old critically ill female with an ejection fraction of 10%, severely depressed left ventricular systolic function, probable ischemic related. Preserved right ventricle function, collapsed inferior vena cava. No pericardial effusion. At this time, plan is to transfer the patient to [facility], [place] under the care of Dr. Sukhi Irby, who is accepted the patient to be evaluated for ventricular assist device, possible evaluation for transplant. ALPHONSO Odonnell MD JRT/YESI , 02:16 PM , 02:44 PM
[2017-05-11] MEDS ORDERED: IOHEXOL 350 MG/ML 50 ML BTL (for Cath Lab) OTHER ONE (14:59)
[2017-05-15 11:09] LABS: ACYLCARNITINE 1 nmol/mL (5-30); CARNITINE FREE 48 nmol/mL (25-54); CARNITINE TOTAL 49 nmol/mL (34-78)
[2017-05-15 18:27] LABS: METANEPHRINE 24 375 mcg/24 h; METANEPHRINE 24 COLLECTION DUR 24 h; NORMETANEPHRINE 24 854 mcg/24 h; TOTAL METANEPHRINE 1229 mcg/24 h; URINE TOTAL VOLUME 1425 mL
== END 2017-05-11 15:00 | disposition short-term general hospital (02) | DRG 270 ==
LOC: PHED 13:27 → PHEDA 15:37 → HCVI 23:34 → HCPC 05-10 10:40 → HCIS 05-10 11:10 → HCVI 05-10 13:15
PROVIDERS: ADMIT Internal Medicine Critical Care Medicine; ATTEND Internal Medicine Critical Care Medicine
PROC: 03HY32Z Insertion of Monitoring Device into Upper Artery, Percutaneous Approach (ICD-10-PCS; 2017-05-10)
PROC: 4A023N8 Measurement of Cardiac Sampling and Pressure, Bilateral, Percutaneous Approach (ICD-10-PCS; 2017-05-10)
PROC: B2111ZZ Fluoroscopy of Multiple Coronary Arteries using Low Osmolar Contrast (ICD-10-PCS; 2017-05-10)
PROC: 5A09357 Assistance with Respiratory Ventilation, Less than 24 Consecutive Hours, Continuous Positive Airway Pressure (ICD-10-PCS; 2017-05-10)
PROC: 0BH17EZ Insertion of Endotracheal Airway into Trachea, Via Natural or Artificial Opening (ICD-10-PCS; 2017-05-10)
PROC: 05HM33Z Insertion of Infusion Device into Right Internal Jugular Vein, Percutaneous Approach (ICD-10-PCS; 2017-05-10)
PROC: B513ZZA Fluoroscopy of Right Jugular Veins, Guidance (ICD-10-PCS; 2017-05-10)
PROC: 4A133B3 Monitoring of Arterial Pressure, Pulmonary, Percutaneous Approach (ICD-10-PCS; 2017-05-10)
PROC: 5A1945Z Respiratory Ventilation, 24-96 Consecutive Hours (ICD-10-PCS; 2017-05-10)
PROC: 5A02210 Assistance with Cardiac Output using Balloon Pump, Continuous (ICD-10-PCS; principal; 2017-05-10 11:00)
DX: I21.4 Non-ST elevation (NSTEMI) myocardial infarction (principal); J96.01 Acute respiratory failure with hypoxia; R57.0 Cardiogenic shock; I11.0 Hypertensive heart disease with heart failure; J96.02 Acute respiratory failure with hypercapnia; I50.21 Acute systolic (congestive) heart failure; G93.41 Metabolic encephalopathy; J45.901 Unspecified asthma with (acute) exacerbation; I27.20 Pulmonary hypertension, unspecified; I47.1 Supraventricular tachycardia; E11.9 Type 2 diabetes mellitus without complications; Z79.84 Long term (current) use of oral hypoglycemic drugs; I25.5 Ischemic cardiomyopathy; I25.10 Atherosclerotic heart disease of native coronary artery without angina pectoris; R06.03 Acute respiratory distress
CPT/HCPCS: 31500; 33967; 36556; 36600; 71045; 76937; 80048; 80053; 80061; 81001; 82379; 82550; 82552; 82805; 82810; 82948; 83036; 83540; 83550; 83735; 83835; 83880; 84100; 84425; 84439; 84443; 84484; 85002; 85025; 85027; 85610; 85730; 86038; 86658; 86703; 87641; 93005; 93306; 93460; 94002; 94003; 94150; 94640; 94664; 94667; 94668; 96361; 96374; 96375; C1769; C1893; J0153; J0171; J0330; J1644; J1815; J1940; J2060; J2250; J2930; J3010; J3475; J7040; J7614; Q9967